=== PATIENT | male | born 1950 | race Caucasian/White ===

== ENCOUNTER 2019-03-20 18:34 | Outpatient (CLI) | payer MEDICARE, SELFPAY ==
--- NOTE | ~2019-03-20 | CT_ITS ---
EXAMINATION: CT lung screening EXAM DATE: 03/20/2019 18:55 INDICATION: Lung cancer, brain cancer. COPD. Personal history of nicotine dependence. TECHNIQUE: Spiral low dose CT of the chest without contrast. Axial, coronal and sagittal images were reviewed. The dose-length product (DLP) for this examination was 69.34 mGy-cm. The exposure was ta ilored according to patient size (auto mA exposure control), and iterative reconstruction (ASIR) was used as additional dose reduction technique. Comparison is made to prior examination from 01/15/2015. FINDINGS: Surgical changes from partial right upper lobectomy. Interval development of oblong nodula r cavitary region in the left upper lobe without spiculations, region measuring 2.8 x 1.2 cm. Appeara nce most consistent with granulation tissue but size warrants further evaluation. There is moderate to severe emphysema and hyperinflation with narrow cardiac silhouette. Tracheobron chial tree is patent. There is no mediastinal, hilar or axillary lymphadenopathy. Trace pericardi al effusion. No pleural effusion. There is no pneumothorax. There is mild coronary arterial calcif ication, arterial sclerosis. Several low density small liver lesions likely cysts again noted. There is thoracic spondylosis without osteoblastic or osteolytic lesions identified. Cervical fusion roby dware. There are no osteoblastic or osteolytic lesions identified. IMPRESSION: Lung-RADS category 4BC, suspicious; recommend PET/CT. Reviewed, dictated and finalized at location A. OL COMMISSIONER
== END 2019-03-20 18:35 | disposition home or self-care (01) ==
LOC: ANHIMG 18:41
PROVIDERS: PCP Family Medicine; Visit Provider Physician Assistant
DX: Z12.2 Encounter for screening for malignant neoplasm of respiratory organs (principal); R91.8 Other nonspecific abnormal finding of lung field; Z87.891 Personal history of nicotine dependence
CPT/HCPCS: G0297

== ENCOUNTER → 2021-03-10 09:54 | Outpatient (REF) | payer MEDICARE, SELFPAY | LOC: ANHLAB 09:54 | PROVIDERS: PCP Family Medicine; Visit Provider Nurse Practitioner | DX: D49.2 Neoplasm of unspecified behavior of bone, soft tissue, and skin (principal) | CPT/HCPCS: 88305 ==

== ENCOUNTER 2021-03-18 02:49 | Day surgery (SDC) | payer MEDICARE, SELFPAY ==
[2021-03-08 11:34] VITALS: BMI 19.4
[2021-03-18 10:49] VITALS: BP 127/77; PULSE 97; RESP 20; TEMP 36.2; O2SAT 100; BMI 18.3
[2021-03-18] MEDS: LACTATED RINGERS 1,000 ML 150 ML IV CONT (10:59)
--- NOTE | 2021-03-18 11:05 | WPDANESEPPF ---
Anes - Initial Pre Proc Eval Procedure: Operation Date: 03/18/21 12:30 Proposed Procedures p Colonoscopy - Garth Choudhury MD Date/Time: 03/18/21 11:05 Surgeon: Garth Choudhury MD Pre Op Diagnosis: positive cologuard, hx of colon polyps Patient Data Age: 71 Gender: M Height: 1.68 m Weight: 51.4 kg Last Vital Signs Temp 36.2 C L 03/18/21 10:49 Pulse 97 03/18/21 10:49 Resp 20 03/18/21 10:49 BP 127/77 03/18/21 10:49 Pulse Ox 100 03/18/21 10:49 Allergies Allergy/AdvReac Type Severity Reaction Status Date / Time No Known Allergies Allergy Unknown Verified 03/18/21 10:37 Home Medications Medication Instructions Recorded Confirmed Type tizanidine 4 mg tablet 4 mg PO TID PRN #60 tablet 02/24/20 03/08/21 Rx simvastatin 40 mg tablet See Rx Instructions .ROUTE 08/09/20 03/08/21 Rx .COMPLEX #90 tablet alprazolam 0.25 mg tablet 0.25 mg PO BID PRN #60 tablet 01/03/21 03/08/21 Rx fentanyl 50 mcg/hr transdermal 1 patch TRANSDERMAL Q48H ea 01/06/21 03/08/21 History patch meloxicam 7.5 mg tablet See Rx Instructions .ROUTE 01/06/21 03/08/21 Rx .COMPLEX #90 tablet oxycodone-acetaminophen 10 mg-325 1 tablet PO Q6H PRN 01/06/21 03/08/21 History mg tablet trazodone 50 mg tablet See Rx Instructions .ROUTE 02/01/21 03/08/21 Rx .COMPLEX #90 tablet lisinopril 20 See Rx Instructions .ROUTE 02/09/21 03/08/21 Rx mg-hydrochlorothiazide 12.5 mg .COMPLEX #90 tablet tablet albuterol sulfate [ProAir HFA] 1 inh INHALATION QID PRN 03/08/21 03/08/21 History co [id number] oil-omega 3-E 1 cap PO DAILY 03/08/21 03/08/21 History Patient hx anesthesia problems: none Family hx anesthesia problems: none Results Review: All pre-operative results and documents have been reviewed as part of the pre-operative evaluation. [facility] Family History Family History Mother Patient's mother is , Onset Age: 32 Family history of malignant neoplasm Father Acute myocardial infarction, Onset Age: 54 Family history of cardiovascular disease Grandparent Family history of lung cancer Family history of malignant neoplasm of brain Social History Social History Smoking packs per day: 1 Smoking cigarettes per day: 20.0 Years smoked: 50 Smoking pack-years: 50.00 Smoking status: Current every day smoker Tobacco type: cigarettes Alcohol intake: never Substance use: current Substance use type: opiates and prescription drug Other substance usage details: chronic back pain Last use: daily norco; fentanyl Living arrangements: with family Spiritual care concerns: No Anes - Eval Final PreProcedure Day of Procedure 03/18/21 11:05 Patient weight: thin Heart: regular rate and rhythm Lungs: decreased breath sounds and wheezes Airway: Mallampati scale class II Neurological: alert and oriented Last oral intake: >/= 8 hours ASA classification: IV Emergent: no Anesthetic plan: proceed Anesthesia type and monitoring: general GIVS and standard monitoring Results Review: All pre-operative results and documents have been reviewed as part of the pre-operative evaluation. Informed Consent: The patient's anesthetic plan and its attendant risks and benefits were discussed with the patient/family/POA. Questions were solicited and answers provided to the satisfaction of the patient/family/POA.
--- NOTE | 2021-03-18 11:08 | WPDGICN ---
Assessment and Plan Assessment and plan (1) Occult blood in stools: Code(s): R19.5 - Other fecal abnormalities Status: Acute Assessment and Plan: Patient has a recent finding of occult blood in stool. Plan is for screening colonoscopy at this time. Particularly given prior history of colon polyps. (2) History of colon polyps: Code(s): Z86.010 - Personal history of colonic polyps Status: Acute Assessment and Plan: Patient has a history of colon polyps identified removed by colonoscopy 3 years ago. Plan is for surveillance colonoscopy now. Follow-up will be determined after endoscopy. GI Consult Note Consult date/time: 03/18/21 11:08 HPI: Manny Pedro is a 71 year old male Presents for colonoscopy. Patient recently had a positive FIT test for occult blood in the stool. ( Note that this was not a Cologuard test as was initially suggested.) Patient denies any obvious blood in his stools. Family history is noncontributory. Patient does have a prior history of colon polyps identified by colonoscopy in [place] in 2018. Patient denies any abdominal pain and he has been in general good health otherwise. Review of Systems Review of Systems: All systems reviewed & are unremarkable except as noted in HPI and below PMFSH Family History Family History Mother Patient's mother is , Onset Age: 32 Family history of malignant neoplasm Father Acute myocardial infarction, Onset Age: 54 Family history of cardiovascular disease Grandparent Family history of lung cancer Family history of malignant neoplasm of brain Social History Social History Smoking packs per day: 1 Smoking cigarettes per day: 20.0 Years smoked: 50 Smoking pack-years: 50.00 Smoking status: Current every day smoker Tobacco type: cigarettes Alcohol intake: never Substance use: current Substance use type: opiates and prescription drug Other substance usage details: chronic back pain Last use: daily norco; fentanyl Living arrangements: with family Spiritual care concerns: No Meds Home Medications and Allergies Home Medications Medication Instructions Recorded Confirmed Type tizanidine 4 mg tablet 4 mg PO TID PRN #60 tablet 02/24/20 03/08/21 Rx simvastatin 40 mg tablet See Rx Instructions .ROUTE 08/09/20 03/08/21 Rx .COMPLEX #90 tablet alprazolam 0.25 mg tablet 0.25 mg PO BID PRN #60 tablet 01/03/21 03/08/21 Rx fentanyl 50 mcg/hr transdermal 1 patch TRANSDERMAL Q48H ea 01/06/21 03/08/21 History patch meloxicam 7.5 mg tablet See Rx Instructions .ROUTE 01/06/21 03/08/21 Rx .COMPLEX #90 tablet oxycodone-acetaminophen 10 mg-325 1 tablet PO Q6H PRN 01/06/21 03/08/21 History mg tablet trazodone 50 mg tablet See Rx Instructions .ROUTE 02/01/21 03/08/21 Rx .COMPLEX #90 tablet lisinopril 20 See Rx Instructions .ROUTE 02/09/21 03/08/21 Rx mg-hydrochlorothiazide 12.5 mg .COMPLEX #90 tablet tablet albuterol sulfate [ProAir HFA] 1 inh INHALATION QID PRN 03/08/21 03/08/21 History co [id number] oil-omega 3-E 1 cap PO DAILY 03/08/21 03/08/21 History Allergies Allergy/AdvReac Type Severity Reaction Status Date / Time No Known Allergies Allergy Unknown Verified 03/18/21 10:37 Vital Signs Vital Signs - 24 hr 03/18/21 10:49 Temperature 97.2 F L Pulse Rate 97 Respiratory Rate 20 Blood Pressure 127/77 Pulse Oximetry 100 Exam Narrative: Physical exam reveals patient to be alert. Vital signs stable. HEENT exam is unremarkable. Lungs are clear to auscultation and percussion. Heart is without murmur or extra sounds. Abdominal exam bowel sounds are present soft nontender with no organomegaly. Digital external rectal exam is normal.
[2021-03-18 11:34] VITALS: BP 85/53; PULSE 73; RESP 26; O2SAT 99
[2021-03-18 11:44] VITALS: BP 90/60; PULSE 70; RESP 26; O2SAT 99
[2021-03-18 11:54] VITALS: BP 111/78; PULSE 67; RESP 17; O2SAT 99
== END 2021-03-18 12:04 | disposition home or self-care (01) ==
PROVIDERS: PCP Family Medicine; Visit Provider Internal Medicine Gastroenterology
PROC: 0DJD8ZZ Inspection of Lower Intestinal Tract, Via Natural or Artificial Opening Endoscopic (ICD-10-PCS; CPT 45378; principal; 2021-03-18 12:30)
DX: R19.5 Other fecal abnormalities (principal); K63.5 Polyp of colon; D12.2 Benign neoplasm of ascending colon; D12.0 Benign neoplasm of cecum; D12.4 Benign neoplasm of descending colon; D12.5 Benign neoplasm of sigmoid colon; K64.8 Other hemorrhoids; D12.3 Benign neoplasm of transverse colon; F17.210 Nicotine dependence, cigarettes, uncomplicated; Z79.51 Long term (current) use of inhaled steroids
CPT/HCPCS: 45385; 88305; J2704; J7120

== ENCOUNTER 2023-09-11 13:44 | Outpatient (CLI) | payer MEDICARE, SELFPAY ==
--- NOTE | ~2023-09-11 | XR_ITS ---
3 VIEWS LUMBAR SPINE Ordering provider: KATHERIN MéndezC History: . LOW BACK PAIN RADIATING DOWN LEGS ANTERIORLY, NO INJURY, . Comparison: June 19, 2017 FINDINGS: VERTEBRAL BODIES:Mild levoscoliosis. Loss of lumbar lordosis suggestive of muscle spasm. No visible fracture or subluxation. Marginal osteophytes seen anteriorly in the lower lumbar area. DISK SPACES: Slight narrowing of the disc L1-L2 and L3-L4. Multilevel facet joint disease. SOFT TISSUES: Normal. IMPRESSION: No acute osseous abnormality lumbar spine. Consider follow up MRI lumbar spine if there is concern for spinal stenosis/neural impingement. Reviewed, dictated and finalized at location A. IMPRESSION: No acute osseous abnormality lumbar spine. Consider follow up MRI lumbar spine if there is concern for spinal stenosis/graham ral impingement.
--- NOTE | ~2023-09-11 | XR_ITS ---
XR hip RT 2V w AP pelvis Ordering provider: KATHERIN MéndezC History: . M25.551 - Pain in right hip, NO INJURY . Comparison: None. FINDINGS: BONES: No acute fracture or dislocation. HIP JOINT SPACES: Narrowing of the joint space is seen medially and inferiorly. SACROILIAC JOINT SPACES/LUMBAR SPINE: The sacroiliac joint spaces are normal. Mild degenerative marie es of the visualized lower lumbar spine. PUBIC SYMPHYSIS: Normal. SOFT TISSUES: Normal. Narrowing of the joint space of the left hip is also seen. IMPRESSION: No acute osseous abnormality pelvis and right hip. 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 Degenerative changes of the spine. Reviewed, dictated and finalized at location A. IMPRESSION: No acute osseous abnormality pelvis and right hip. Osteoarthritic changes in joy th hips. Degenerative changes of the spine.
== END 2023-09-11 13:45 | disposition home or self-care (01) ==
LOC: ANHIMG 13:45
PROVIDERS: PCP Family Medicine; Visit Provider Nurse Practitioner Family
DX: M16.0 Bilateral primary osteoarthritis of hip (principal); M47.896 Other spondylosis, lumbar region
CPT/HCPCS: 72100; 73502

== ENCOUNTER 2024-05-05 08:52 | Observation (INO) | payer MEDICARE, SELFPAY ==
[2024-05-05] VITALS (8 sets, daily range): BP systolic 108–140; BP diastolic 54–78; PULSE 69–83; RESP 12–19; TEMP 36.5–36.8; O2SAT 95–100
--- NOTE | ~2024-05-05 | CT_ITS ---
EXAMINATION: CT brain wo con DATE: 05/05/2024 09:53 INDICATION: Altered mental status TECHNIQUE: Computed tomography (CT) of the head was performed without intravenous contrast. The dose- length product was 605.33 mGy-cm. Automated exposure control and iterative reconstruction technique w ere employed. COMPARISON: CT dated 10/05/2010 and MRI dated 08/19/2013 FINDINGS: There is encephalomalacia of the right parietal lobe consistent with prior tumor resection. No ventriculomegaly or midline shift. Basilar cisterns are patent. There is intracranial atheroscler osis. Orbits are symmetric. No acute infarction, hemorrhage, mass or mass effect. Midline sagittal im ages demonstrate a normal corpus callosum and craniovertebral junction. There are scattered mild ankit ventricular and subcortical white matter changes, most likely related to small vessel ischemic diseas e (microangiopathy). There is a right parietal craniotomy defect. Paranasal sinuses and mastoids are pneumatized. IMPRESSION: 1. No acute intracranial abnormality. 2: Encephalomalacia of the right parietal lobe, consistent with prior tumor resection. Reviewed, dictated and finalized at location A. BUILDER IMPRESSION: 1. No acute intracranial abnormality. 2: Encephalomalacia of the right parietal lobe, consistent with prior tumor res ection.
--- NOTE | ~2024-05-05 | CT_ITS ---
EXAMINATION: CT cervical spine wo con DATE: 05/05/2024 09:57 INDICATION: Altered mental status with fall and 1 day of weakness. TECHNIQUE: Computed tomography (CT) of the cervical spine was performed without intravenous contrast. Automated exposure control and iterative reconstruction technique were employed. The dose-length pro duct was 137.45 mGy-cm. COMPARISON: None FINDINGS: Instrumented C3-T1 anterior spinal fusion with bilateral vertical shilo and pedicle screw fixation as w ell as cerclage wires about the C3-C4 and C7-T1 spinous processes. There is also anterior spinal fusi on at C3-C7. There is straightening of the normal cervical lordosis and a mild upper thoracic kyphosi s. Unfused vertebral body heights are normal. No acute fractures. Severe atlantoaxial osteoarthritis. Mild disc height loss at C2-C3, C7-T1 and at the visualized upper thoracic discs. No central canal s tenosis. There is mild neural foraminal stenosis on the right at C2-C3 and C4-C5, the left T1-2 and o n the right at T2-T3. Small amount of atherosclerotic calcific location at the bilateral carotid bulb s. Cervical soft tissues are unremarkable. Small right mastoid effusion. Moderate emphysema at the vi sualized upper lungs. There is a suture line along the margins of a partially visualized 5.4 x 4.5 cm thick-walled cavitary lesion at the right apex. There is an air-fluid level within the lesion which could be either infectious or malignant in etiology. There is some nodular thickening of the immediat luann adjacent posterior pleura. IMPRESSION: 1. Mild cervical and upper thoracic spondylosis with C3-T1 instrumented posterior spinal fusion with additional C3-C7 anterior spinal fusion without instrumentation. No acute osseous abnormality. 2. Moderate emphysema with air-fluid level within a partially visualized 5.4 x 4.5 cm thick-walled ca vitary lesion at the right apex which could be either infectious or malignant in etiology. Consider d edicated chest CT for further evaluation. Reviewed, dictated and finalized at location B. Y GRADER AND BLENDER IMPRESSION: 1. Mild cervical and upper thoracic spondylosis with C3-T1 instrumented posteri or spinal fusion with additional C3-C7 anterior spinal fusion without instrumen tation. No acute osseous abnormality. 2. Moderate emphysema with air-fluid level within a partially visualized 5.4 x 4.5 cm thick-walled cavitary lesion at the right apex which could be either inf ectious or malignant in etiology. Consider dedicated chest CT for further evalu ation.
--- NOTE | ~2024-05-05 | CT_ITS ---
EXAMINATION: CT chest abdomen pelvis w con DATE: 05/05/2024 10:38 INDICATION: Abnormal kidney labs. Cavitary mass at the right apex. TECHNIQUE: Computed tomography (CT) of the chest, abdomen, and pelvis was performed with 100 mL Omnip aque-350 intravenous contrast. Automated exposure control and iterative reconstruction technique were employed. The dose-length product was 282.43 mGy-cm. COMPARISON: PET/CT dated 04/03/[address] dated 03/20/2019 FINDINGS: CHEST CT: Again seen is moderate to severe emphysema. Again seen is an air-fluid level within a 5.3 x 5.5 x 4.2 cm heterogeneously thick-walled cavitary mass at the right apex. Suture line located along the perip agustín of the mass suggesting a prior pulmonary wedge resection. There are few small satellite nodules immediately adjacent to a cavitary mass the largest measuring 11 mm in maximal diameter with central calcification suggesting possible sequela of old granulomatous disease. 6.3 x 3.4 x 4.7 cm heterogene ously enhancing left hilar mass with lobular margins which compresses the bronchus to the superior se gment of the left lower lobe which is concerning for malignancy. There are a few additional scattered noncalcified pulmonary nodules in both lungs which are most numerous in the right lower lobe which c ould be either infectious or metastatic in etiology. The largest measures 12 mm in maximal diameter i n the left lower lobe where there are some surrounding groundglass opacity which could be due to atel ectasis or pneumonia. Heart size is normal. Atherosclerotic coronary artery calcific lesion. No peric ardial effusion. Thoracic aorta is normal in caliber with no dissection. There are a few additional m ildly prominent mediastinal and bilateral supraclavicular lymph nodes, the largest located lateral to the left thyroid lobe which measures up to 1.3 cm diameter which could be reactive or metastatic. Th ere is stranding at the left axilla surrounding a few additional enlarged lymph nodes measuring up to 1.5 cm in maximal short axis diameter and similarly concerning for metastatic disease. Mild thoracic dextroscoliosis with mild spondylosis. Partially visualized instrumentation for posterior spinal fus ion at the cervicothoracic junction extending into the cervical spine beyond the cephalad margin of t he [id number]. ABDOMEN/PELVIS CT: Multiple relatively well-defined low-attenuation hepatic cysts measuring up to 1.4 cm in maximal diam eter. There are several gallstones within the otherwise normal gallbladder. Spleen, pancreas and bila teral adrenal glands are normal. There are bilateral renal cysts, tiny at the lower pole of the left kidney and measuring up to 5.8 cm at the right kidney. No bowel obstruction. There is calcified ather osclerosis of the aorta and many of the other arteries. Prostatomegaly measuring 5.2 x 3.5 cm. Bladde r is normal. No free intraperitoneal gas or fluid. No pathologically enlarged abdominal or pelvic lym phadenopathy. Mild lumbar levoscoliosis with moderate spondylosis. IMPRESSION: 1. 6Moderate emphysema with air-fluid level within a thick-walled cavitary mass at the right apex whi ch could be malignant or infectious in etiology. 2.3 x 3.4 x 4.7 cm lobular mass at the left hilum most suspicious for metastatic disease. 3. Mediastinal, bilateral supraclavicular and left axillary lymphadenopathy suspicious for additional metastatic disease. 4. Multiple bilateral pulmonary nodules most prominent in the bilateral lower lobes which could be ad ditional metastatic disease or infectious in etiology. 5. Cholelithiasis. 6. Prostatomegaly. Reviewed, dictated and finalized at location B. BLENDER IMPRESSION: 1. 6Moderate emphysema with air-fluid level within a thick-walled cavitary mass at the right apex which could be malignant or infectious in etiology. 2.3 x 3.4 x 4.7 cm lobular mass at the left hilum most suspicious for metastati c disease. 3. Mediastinal, bilateral supraclavicular and left axillary lymphadenopathy pedro picious for additional metastatic disease. 4. Multiple bilateral pulmonary nodules most prominent in the bilateral lower l obes which could be additional metastatic disease or infectious in etiology. 5. Cholelithiasis. 6. Prostatomegaly.
--- NOTE | ~2024-05-05 | XR_ITS ---
Clinical Indication: Weakness AP and lateral views of the chest: Comparison: 06/08/2017 Findings: There is hazy and interstitial bibasilar pulmonary disease. There is a cavitary lesion with air-fluid level on the right upper lobe/right lung apex measuring 5.4 cm in maximum diameter.. Card iomediastinal silhouette is within normal limits. Bones and soft tissues are unremarkable. Impression: Right apical cavitary lesion with air-fluid level measuring 5.4 cm in diameter. Contrast-enhanced nathalie st CT recommended for further evaluation. Mild bibasilar hazy and interstitial disease could reflect mild pulmonary edema or chronic interstiti al change. Reviewed, dictated and finalized at location . 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 Contrast-enhanced chest CT recommended for further evaluation. Mild bibasilar hazy and interstitial disease could reflect mild pulmonary edema or chronic interstitial change.
--- NOTE | 2024-05-05 08:58 | ECG_ITS ---
Test Date: 2024-05-05 09:00:14 Measurements Intervals [place] Rate: 80 P: 80 [place]: 167 QRS: 81 QRSD: 84 T: 61 QT: 359 QTc: 416 Interpretive Statements SINUS RHYTHM No previous ECG available for comparison Electronically Signed On 05-05-2024 21:18:09 TAILOR'S AIDE by Janes Warren M.D.
[2024-05-05 09:13] LABS: Basophils Percent Auto 0.2 % (0.2-1.2); Eosinophils Absolute Auto 0.1 K/mm3 (0-0.3); Hematocrit 36.3 % (42.0-52.0); Hemoglobin 12.3 g/dL (14.0-18.0); Immature Granulocyte Absolute 0.05 K/mm3 (0.00-0.031); Immature Granulocyte Percent A 0.4 % (0-0.5); Lymphocytes Absolute Auto 0.96 K/mm3 (0.9-3.2); Lymphocytes Percent Auto 6.9 % (18.3-44.2); Mean Corpuscular HGB Conc 33.9 g/dl (32-36); Mean Corpuscular Hemoglobin 31.8 pg (26-34); Mean Corpuscular Volume 93.8 fl (80-100); Mean Platelet Volume 8.9 fl (7.4-10.4); Monocytes Absolute Auto 0.7 K/mm3 (0.1-0.6); Monocytes Percent Auto 4.7 % (2.6-8.5); Neutrophils Absolute Auto 12.1 K/mm3 (1.3-6.7); Neutrophils Percent Auto 86.8 % (45.5-73.1); Platelet Count Result 186 k/mm3 (150-375); Red Blood Count 3.87 M/mm3 (4.6-6.20); Red Cell Distribution Width 12.4 % (11.5-14.5); White Blood Count 13.9 K/mm3 (4.5-10.0)
[2024-05-05 09:36] LABS: Alanine Aminotransferase 11 U/L (6-50); Albumin Level 3.9 g/dL (3.5-5.1); Alkaline Phosphatase 83 U/L (38-126); Anion Gap 9 mmol/L (4-12); Aspartate Amino Transferase 19 U/L (17-59); Bilirubin,Total 1.1 mg/dL (0.2-1.3); Blood Urea Nitrogen 35 mg/dL (9-20); Calcium 9.7 mg/dL (8.4-10.2); Carbon Dioxide 27 mmol/L (22-30); Chloride 101 mmol/L (98-107); Estimated CRCL calculation 29 ml/min; Estimated Glomerular Filt Rate 50; Glucose 152 mg/dL (65-110); Sodium 137 mmol/L (137-145)
--- NOTE | 2024-05-05 09:41 | ED.WEAKNESS ---
HPI - Weakness General Chief complaint: Weakness Stated complaint: increased weakness since yesterday Time Seen by Provider: 05/05/24 09:02 History of Present Illness HPI Narrative: Patient is a 74-year-old male who presents to the ER with weakness. His family reports his last known well was around 8:00 p.m. last night. Patient endorses his ?side is hurting.?His significant other reports his size started hurting night, but his mental status was baseline. This morning patient was found around 8:00 a.m. unresponsive on the bathroom floor. Patient's stepdaughter reports he was ?mumbling ?when she found him but he was unable to ambulate. EMS brought patient to the ER. He is A&O x 2 upon arrival to the ER. Upon examination he complains of no pain besides his left chest hurting. Patient denies increased pain with palpation. He denies any shortness of breath, back pain, abdominal pain, urinary symptoms, recent fevers. Patient's significant other endorses a history of hypertension, COPD, and he is followed by pain management. Related Data Home Medications ?Medication ?Instructions ?Recorded ?Confirmed ?Last Taken ?Type fentanyl 50 mcg/hr transdermal 1 patch transdermal Q48H 01/06/21 02/15/24 03/17/21 History patch oxycodone-acetaminophen 10 mg-325 1 tablet PO Q6H PRN Shortness Of 01/06/21 02/15/24 03/17/21 History mg tablet Breath Or Wheezing [id number] oil-omega 3-vit E 1 cap PO DAILY 03/08/21 02/15/24 03/17/21 History 50 mg-550 mg-300 mg-30 unit capsule Allergies Allergy/AdvReac Type Severity Reaction Status Date / Time No Known Allergies Allergy Unknown Verified 02/15/24 15:33 Review of Systems Review of Systems: All systems reviewed & are unremarkable except as noted in HPI and below PMFSH Family History Family History Mother Patient's mother is , Onset Age: 32 Family history of malignant neoplasm Father Acute myocardial infarction, Onset Age: 54 Family history of cardiovascular disease Grandparent Family history of lung cancer Family history of malignant neoplasm of brain Social History Social History Smoking packs per day: 1 Smoking cigarettes per day: 20.0 Years smoked: 50 Smoking pack-years: 50.00 Smoking status: Current every day smoker Tobacco type: cigarettes Alcohol intake: never Substance use: current Substance use type: opiates and prescription drug Other substance usage details: chronic back pain Last use: daily norco; fentanyl Lack of Transportation: No Lack of Food: Never True Current Housing: I Have Housing Concerned About Future Housing: No Difficulty Paying Gas/Electric Bills: No Difficulty Paying for Meds: No Currently Unemployed: No Education: High School Diploma/GED Difficulty w/ Childcare or Family Care: No Living arrangements: with family Spiritual care concerns: No Exam Narrative: GENERAL: Well appearing, poorly nourished, non-toxic, in no acute distress. HEAD: Normocephalic, atraumatic. NECK: Supple. No adenopathy, no masses. RESPIRATORY: Airway patent, respirations nonlabored. Clear to auscultation bilaterally, no rales, rhonchi, wheezing. CARDIOVASCULAR: Regular rate and rhythm without murmurs, rubs, or gallops. Peripheral pulses 2+ and equal bilaterally. Constant left-sided chest/flank pain, does not increase with palpation. ABDOMINAL: Soft, nontender, nondistended, no hepatosplenomegaly. Normoactive BS. MUSCULOSKELETAL: Moves all extremities. Strength/ROM intact without gross deformities. SKIN: Warm, dry, normal color. No rashes. NEURO: A&O X2. Speech clear. Difficulty following directions. Able to complete neuro checks, but it takes an extended amount of time for pt to comprehend what is being asked of him. Cranial nerves II-XII grossly intact. PSYCHIATRIC: Flat affect. abnormal interaction. Family answered most questions. Course Vital Signs Vital signs: Vital Signs Temperature 36.5 C 05/05/24 08:59 Pulse Rate 81 05/05/24 08:59 Respiratory Rate 19 05/05/24 08:59 Blood Pressure 114/60 05/05/24 08:59 Pulse Oximetry 95 05/05/24 08:59 Oxygen Delivery Room Air 05/05/24 08:59 Temperature 36.5 C 05/05/24 08:59 Pulse Rate 69 05/05/24 11:32 Respiratory Rate 14 05/05/24 11:32 Blood Pressure 114/78 05/05/24 11:32 Pulse Oximetry 96 05/05/24 11:32 Oxygen Delivery Room Air 05/05/24 08:59 MDM - Weakness MDM Narrative Medical decision making narrative: Patient is a 74-year-old male who presents to the ER with weakness. His family reports his last known well was around 8:00 p.m. last night. Patient endorses his ?side is hurting.?His significant other reports his size started hurting night, but his mental status was baseline. This morning patient was found around 8:00 a.m. unresponsive on the bathroom floor. Patient's stepdaughter reports he was ?mumbling ?when she found him but he was unable to ambulate. EMS brought patient to the ER. He is A&O x 2 upon arrival to the ER. Upon examination he complains of no pain besides his left chest hurting. Patient denies increased pain with palpation. He denies any shortness of breath, back pain, abdominal pain, urinary symptoms, recent fevers. Patient's significant other endorses a history of hypertension, COPD, and he is followed by pain management. Labs Ordered: Imaging Ordered: Medications Ordered: Results: Diagnosis: Risks: HEART score, PECARN score Consults: Patient Education/Shared MDM: Differential Diagnosis Differential diagnosis: Likely rhabdomyolysis, sepsis, dehydration and other (pneumonia, COVID, drug-induced altered mental status) Lab Data Attestation: I reviewed the patient's lab results. 05/05/24 09:06 05/05/24 09:06 Labs: Lab Results 05/05/24 05/05/24 05/05/24 Range/Units 09:06 09:47 10:18 WBC 13.9 H (4.5-10.0) K/mm3 RBC 3.87 L (4.6-6.20) M/mm3 Hgb 12.3 L (14.0-18.0) g/dL Hct 36.3 L (42.0-52.0) % MCV 93.8 (80-100) fl MCH 31.8 (26-34) pg MCHC 33.9 (32-36) g/dl RDW 12.4 (11.5-14.5) % Plt Count 186 (150-375) k/mm3 MPV 8.9 (7.4-10.4) fl Immature Gran % (Auto) 0.4 (0-0.5) % Neut % (Auto) 86.8 H (45.5-73.1) % Lymph % (Auto) 6.9 L (18.3-44.2) % [place] % (Auto) 4.7 (2.6-8.5) % Eos % (Auto) 1.0 (0-4.4) % Baso % (Auto) 0.2 (0.2-1.2) % Lymph # (Auto) 0.96 (0.9-3.2) K/mm3 [place] # (Auto) 0.7 H (0.1-0.6) K/mm3 Eos # (Auto) 0.1 (0-0.3) K/mm3 Baso # (Auto) 0.0 (0.0-0.1) K/mm3 Abs Immat Gran (auto) 0.05 H (0.00-0.031) K/mm3 Absolute Neuts (auto) 12.1 H (1.3-6.7) K/mm3 Absolute Nucleated RBC 0.000 (0.0-0.012) K/mm3 Nucleated RBC % 0.0 (0.0-0.2) % PT 16.3 H (11.1-14.7) Seconds INR 1.3 APTT 33.5 (22.3-36.8) Seconds Sodium 137 (137-145) mmol/L Potassium 4.0 (3.4-5.0) mmol/L Chloride 101 (98-107) mmol/L Carbon Dioxide 27 (22-30) mmol/L Anion Gap 9 (4-12) mmol/L BUN 35 H (9-20) mg/dL Creatinine 1.40 H (0.7-1.3) mg/dL Estim Creat Clear Calc 29 ml/min Estimated GFR 50 L (59 - ) Glucose 152 H (65-110) mg/dL Lactic Acid 0.9 (0.7-2.0) mmol/L Calcium 9.7 (8.4-10.2) mg/dL Total Bilirubin 1.1 (0.2-1.3) mg/dL AST 19 (17-59) U/L ALT 11 (6-50) U/L Alkaline Phosphatase 83 (38-126) U/L Total Creatine Kinase 35 L (55-170) U/L Troponin I < 0.012 (0.000-0.034) ng/mL Total Protein 7.0 (6.3-8.2) g/dL Albumin 3.9 (3.5-5.1) g/dL TSH 1.000 (0.465-4.680) uIU/mL Urine Color (Yellow) Urine Appearance (Clear) Urine pH (5.0-9.0) Ur Specific [place] (1.001-1.035) Urine Protein (Negative) mg/dL Urine Glucose (UA) (Negative) mg/dL Urine Ketones (Negative) mg/dL Ur Blood (Man) (Negative) Urine Nitrate (Negative) Urine Bilirubin (Negative) Urine Urobilinogen (<2.0) mg/dL Leukocyte Esterase Rfl (Negative) TYRONE/UL Urine RBC (0-2) /hpf Urine WBC (0-3) /hpf Ur Squamous Epith Cells (Few) /hpf Urine Bacteria /hpf Urine Casts Urine Opiates Screen (Negative) Urine Methadone Screen (Negative) Ur Barbiturates Screen (Negative) Ur Phencyclidine Scrn (Negative) Ur Amphetamine Screen (Negative) U Benzodiazepines Scrn (Negative) Urine Cocaine Screen (Negative) U Cannabinoids Screen (Negative) Influenza A (RT-PCR) Negative (Negative) Influenza B (RT-PCR) Negative (Negative) RSV (RT-PCR) Negative (Negative) SARS-CoV-2 RNA (RT-PCR) Negative (Negative) 05/05/24 Range/Units 10:44 WBC (4.5-10.0) K/mm3 RBC (4.6-6.20) M/mm3 Hgb (14.0-18.0) g/dL Hct (42.0-52.0) % MCV (80-100) fl MCH (26-34) pg MCHC (32-36) g/dl RDW (11.5-14.5) % Plt Count (150-375) k/mm3 MPV (7.4-10.4) fl Immature Gran % (Auto) (0-0.5) % Neut % (Auto) (45.5-73.1) % Lymph % (Auto) (18.3-44.2) % [place] % (Auto) (2.6-8.5) % Eos % (Auto) (0-4.4) % Baso % (Auto) (0.2-1.2) % Lymph # (Auto) (0.9-3.2) K/mm3 [place] # (Auto) (0.1-0.6) K/mm3 Eos # (Auto) (0-0.3) K/mm3 Baso # (Auto) (0.0-0.1) K/mm3 Abs Immat Gran (auto) (0.00-0.031) K/mm3 Absolute Neuts (auto) (1.3-6.7) K/mm3 Absolute Nucleated RBC (0.0-0.012) K/mm3 Nucleated RBC % (0.0-0.2) % PT (11.1-14.7) Seconds INR APTT (22.3-36.8) Seconds Sodium (137-145) mmol/L Potassium (3.4-5.0) mmol/L Chloride (98-107) mmol/L Carbon Dioxide (22-30) mmol/L Anion Gap (4-12) mmol/L BUN (9-20) mg/dL Creatinine (0.7-1.3) mg/dL Estim Creat Clear Calc ml/min Estimated GFR (59 - ) Glucose (65-110) mg/dL Lactic Acid (0.7-2.0) mmol/L Calcium (8.4-10.2) mg/dL Total Bilirubin (0.2-1.3) mg/dL AST (17-59) U/L ALT (6-50) U/L Alkaline Phosphatase (38-126) U/L Total Creatine Kinase (55-170) U/L Troponin I (0.000-0.034) ng/mL Total Protein (6.3-8.2) g/dL Albumin (3.5-5.1) g/dL TSH (0.465-4.680) uIU/mL Urine Color Yellow (Yellow) Urine Appearance Clear (Clear) Urine pH 5.5 (5.0-9.0) Ur Specific [place] 1.019 (1.001-1.035) Urine Protein Trace (Negative) mg/dL Urine Glucose (UA) Negative (Negative) mg/dL Urine Ketones Trace H (Negative) mg/dL Ur Blood (Man) Negative (Negative) Urine Nitrate Negative (Negative) Urine Bilirubin Negative (Negative) Urine Urobilinogen 0.2 (<2.0) mg/dL Leukocyte Esterase Rfl Negative (Negative) TYRONE/UL Urine RBC 0-2 (0-2) /hpf Urine WBC 0-5 (0-3) /hpf Ur Squamous Epith Cells None seen (Few) /hpf Urine Bacteria None seen /hpf Urine Casts 0-2 Urine Opiates Screen Negative (Negative) Urine Methadone Screen Negative (Negative) Ur Barbiturates Screen Negative (Negative) Ur Phencyclidine Scrn Negative (Negative) Ur Amphetamine Screen Negative (Negative) U Benzodiazepines Scrn Negative (Negative) Urine Cocaine Screen Negative (Negative) U Cannabinoids Screen Negative (Negative) Influenza A (RT-PCR) (Negative) Influenza B (RT-PCR) (Negative) RSV (RT-PCR) (Negative) SARS-CoV-2 RNA (RT-PCR) (Negative) Imaging Data Attestation: I personally reviewed and interpreted this imaging study as follows: Radiologist's impression: Impressions Head CT 05/05/24 09:54 IMPRESSION: 1. No acute intracranial abnormality. 2: Encephalomalacia of the right parietal lobe, consistent with prior tumor resection. Cervical Spine CT 05/05/24 10:04 IMPRESSION: 1. Mild cervical and upper thoracic spondylosis with C3-T1 instrumented posterior spinal fusion with additional C3-C7 anterior spinal fusion without instrumentation. No acute osseous abnormality. 2. Moderate emphysema with air-fluid level within a partially visualized 5.4 x 4.5 cm thick-walled cavitary lesion at the right apex which could be either infectious or malignant in etiology. Consider dedicated chest CT for further evaluation. Chest X-Ray 05/05/24 10:05 Impression: Right apical cavitary lesion with air-fluid level measuring 5.4 cm in diameter. Contrast-enhanced chest CT recommended for further evaluation. Mild bibasilar hazy and interstitial disease could reflect mild pulmonary edema or chronic interstitial change. Chest/Abdomen/Pelvis CT 05/05/24 11:21 IMPRESSION: 1. 6Moderate emphysema with air-fluid level within a thick-walled cavitary mass at the right apex which could be malignant or infectious in etiology. 2.3 x 3.4 x 4.7 cm lobular mass at the left hilum most suspicious for metastatic disease. 3. Mediastinal, bilateral supraclavicular and left axillary lymphadenopathy suspicious for additional metastatic disease. 4. Multiple bilateral pulmonary nodules most prominent in the bilateral lower lobes which could be additional metastatic disease or infectious in etiology. 5. Cholelithiasis. 6. Prostatomegaly. Discharge Plan Discharge Clinical Impression: Pneumonia, History of lung cancer, Dehydration, Altered mental state Chronic obstructive pulmonary disease, unspecified Qualifiers: COPD type: unspecified COPD Qualified Code(s): J44.9 - Chronic obstructive pulmonary disease, unspecified Patient Disposition: Still a Patient Condition: Stable Patient Language: Welsh Prescriptions: No Action propranolol 60 mg capsule,extended release 24 hr 60 mg PO DAILY Qty: 90 2RF oxycodone-acetaminophen 10-325 mg tablet 1 tablet PO Q6H PRN (Reason: Shortness Of Breath Or Wheezing) fentanyl 50 mcg/hr patch 72 hour 1 patch transdermal Q48H co [id number] oil-omega 3-E [id number] Capsule 1 cap PO DAILY alprazolam 0.25 mg tablet 0.25 mg PO BID PRN (Reason: anxiety) Qty: 180 1RF tizanidine 4 mg tablet 4 mg PO TID PRN (Reason: muscle spasticity) Qty: 60 1RF meloxicam 7.5 mg tablet See Rx Instructions .ROUTE .COMPLEX Qty: 90 1RF Dose Instruction: TAKE 1 TABLET BY MOUTH DAILY Rx Instructions: TAKE 1 TABLET BY MOUTH DAILY simvastatin 40 mg tablet 40 mg PO DAILY Qty: 90 1RF Rx Instructions: DUE FOR APPOINTMENT FOR IN FEBRUARY lisinopril-hydrochlorothiazide 20-12.5 mg tablet See Rx Instructions .ROUTE .COMPLEX Qty: 90 1RF Dose Instruction: TAKE 1 TABLET BY MOUTH DAILY Rx Instructions: TAKE 1 TABLET BY MOUTH DAILY trazodone 150 mg tablet 150 mg PO QHS Qty: 90 1RF Follow-up/Referrals: Bret Schuler MD [Primary Care Provider] -
--- OUTSIDE RECORDS SUMMARY | 2024-05-05 09:43 | XMS_ITS | Continuity of Care Document ---
Author Name [facility] Organization [facility] Care Team Providers Care Morgue Technician Name Role Phone [facility] Unavailable Unavailable Problems Combined list of problems from Department of Defense and Veterans Affairs facilities. It does not include entries that were removed or entered in error. Problem Status Onset Date Problem Type Date of Resolution Comments Source Adjustment Disorder W/Anxiety Active Condition [facility] Anxiety (SNOMED CT 99380004) Active Condition [facility] Benign essential hypertension (SNOMED CT 7855651) Active Condition [facility] Bilateral shoulder joint pain Active Condition [facility] Depression Active Condition [facility] Herpes Genitalis Active Condition Nov 12, 2006 Entered By: RONY SCHUMACHER Comment: no outbreak for 1 year [facility] History of cervical spine fusion (SNOMED CT 3734876267025) Active Condition Nov 12, 2006 Entered By: RONY SCHUMACHER Comment: patient has had 2 surgeries and has a shilo in place. [facility] Hypercalcemia Active Condition [facility] Hypokalemia * (ICD-9-CM 276.8) Active Condition [facility] Lung Cancer (SCT 85243695) Active Condition Nov 04, 2019 Entered By: PAULIE LIZARRAGA Comment: recurrent; seeing Dmitriy, pending surgery or radiation tx [facility] Mixed hyperlipidemia (SNOMED CT 293056013) Active Condition [facility] Mood Disorder NOS Active Condition [facility] Substance-Induced Mood Disorder Active Condition [facility] Tobacco use Active Condition [facility] Carcinoma of lung Inactive Condition 11/04/2019 [facility] Degenerative Joint Disease Inactive Condition 11/04/2019 Nov 12, 2006 Entered By: RONY SCHUMACHER Comment: right knee [facility] Hyperkalemia * (ICD-9-CM 276.7) Inactive Condition 04/12/2007 [facility] Low Back Pain Inactive Condition 11/04/2019Nov Entered By: RONY SCHUMACHER Comment: had discectomy in the [facility] Medications Combined list of outpatient medications from Department of Defense and Veterans Affairs facilities.Medications provided include 1) outpatient medications from the last 15 months, and 2) patient-reported medications. Medication Details Route Status Patient Instructions Prescription Expires Prescription Number Last Dispense Date Ordering Provider Order Date Order Qty Source ALPRAZOLAM 0.25MG TAB TAKE ONE TABLET BY MOUTH TWICE A DAY NEEDED ORAL ACTIVE HOWARD FARMER 2020 [facility] FENTANYL 25MCG/HR PATCH APPLY 1 PATCH (25MCG) TO SKIN SITE EVERY 72 HOURS TRANSD ERMAL ACTIVE HPAM SCHUMACHER 2006 [facility] FISH OIL CAP/TAB TAKE 1 CAP/TAB BY MOUTH ORAL ACTIVE HOWARD FARMER 2020 [facility] HYDROCHLORO THIAZIDE 12.5MG/DYANA NOPRIL 20MG TAB TAKE ONE TABLET BY MOUTH EVERY MORNING ORAL ACTIVE HOWARD FARMER 2020 [facility] LEVETIRACET AM 500MG TAB TAKE ONE TABLET BY MOUTH TWICE A DAY ORAL ACTIVE HOWARD FARMER 2020 [facility] MELOXICAM 7.5MG TAB TAKE ONE TABLET BY MOUTH ONCE A DAY ORAL ACTIVE HOWARD FARMER 2020 [facility] MULTIVITAMI NS CAP/TAB TAKE ONE TABLET BY MOUTH ONCE A DAY ORAL ACTIVE HOWARD FARMER 2020 [facility] OXYCODONE/A CETAMINOPHE N (UD) TAB TAKE 5/325MG BY MOUTH FOUR TIMES A DAY ORAL ACTIVE PHAM SCHUMACHER 2006 [facility] SIMVASTATIN 80MG TAB TAKE ONE-HALF TABLET BY MOUTH EVERY EVENING ORAL ACTIVE HOWARD FARMER 2020 [facility] TIZANIDINE HCL 4MG TAB TAKE ONE TABLET BY MOUTH ONCE A DAY ORAL ACTIVE HOWARD FARMER 2020 [facility] TRAZODONE HCL 100MG TAB TAKE ONE-HALF TABLET BY MOUTH AT BEDTIME ORAL ACTIVE HOWARD FARMER 2020 [facility] Immunizations Combined list of available immunizations from the Department of Defense and Veterans Affairs facilities. Immunization Series Date Given Administered By Site Reaction Lot Number CVX Code Drug Customer Assistance Representative Status Comments Source COVID-19, MRNA, LNP-S, BIVALENT BOOSTER, PF, 30 MCG/0.3 ML DOSE 1 2021 300 complet ed PFR; [id number]; 3 [facility] INFLUENZA VACCINE, QUADRIVALENT, ADJUVANTED 2021 205 complet ed [facility] COVID-19 (MODERNA), MRNA, LNP-S, PF, 100 MCG/0.5ML DOSE OR 50 MCG/0.25ML DOSE 3 2020 207 complet ed [facility] INFLUENZA VACCINE, QUADRIVALENT, ADJUVANTED 2020 205 complet ed [facility] COVID-19 (MODERNA), MRNA, LNP-S, PF, 100 MCG/0.5 ML DOSE 2 2020 207 complet ed [facility] COVID-19 (MODERNA), MRNA, LNP-S, PF, 100 MCG/0.5 ML DOSE 1 2020 207 complet ed [facility] INFLUENZA, UNSPECIFIED FORMULATION 2018 88 complet ed [facility] INFLUENZA, INJECTABLE, QUADRIVALENT, PRESERVATIVE FREE 2017 150 complet ed [facility] TDAP 2017 115 complet ed [facility] INFLUENZA, UNSPECIFIED FORMULATION 2007 88 complet ed [facility] INFLUENZA, UNSPECIFIED FORMULATION 2006 88 complet ed [facility] TDAP 2006 115 complet ed [facility] Social History Combined list of available smoking, tobacco, and other social history from Department of Defense and Veterans Affairs facilities. Social History Type Response Date Comment [facility] e Tobacco smoking status [facility] VA-TOBACCO USER EVERY DAY 01/05/2022 [facility] [place] of [place] 30 MIN OF WAKEUP 01/05/2022 [facility] History of tobacco use [place] EVERY DAY 01/05/2021 [facility] History of tobacco use VA-TOBACCO USE STAMPING OPERATOR NO 11/27/2018 [facility] History of tobacco use TOBACCO USER OFFERED MEDS 12/17/2017 [facility] History of tobacco use CURRENT TOBACCO USER 03/31/[address] [facility] History of tobacco use TOBACCO OFFERED STOP SMOKING CLINIC 09/05/[address] [facility] History of tobacco use CURRENT TOBACCO USER [facility]/12[facility]2006 [facility]
--- OUTSIDE RECORDS SUMMARY | 2024-05-05 09:43 | XMS_ITS | Clinical Summary ---
Author Organization [facility] Address [address] [place] [address] Care Team Providers Care E Learning Coordinator Name Role Phone Unavailable Primary Care Provider Unavailabl e Source Comments [facility] [employer],non-owned Affiliates and Associated Physician Practices is amultiple site organization consisting of ambulatory clinics and hospital sitesin [place], [place], [place] and [place]. This disclosure is being madepursuant to the Care Everywhere program and may not contain all information available regarding this patient. Last updated 17.[facility] [employer] Social History Tobacco Use Types Packs/Day Years Used Date Smoking Tobacco: Never Assessed Sex and Gender Information Value Date Recorded Sex Assigned at Not on file Gender Identity Not on file Sexual Orientation Not on file Plan of Treatment Health Maintenance Due Date Last Done Comments COLOGUARD (AGES 45-75) - COL ON CA SCREENING 1951 COLON MONITORING 1951 COLONOSCOPY - COLON CA SCREENING 1951 CT COLONOGRAPHY - COLON CA SCREENING 1950 Colorectal Cancer Screening 1951 FIT - COLON CA SCREENING 1951 FLEX SIG - COLON CA SCREENING 1951 LIPID TESTING 1951 HEPATITIS C SCREENING 03/09/1969 DTAP/TDAP/TD VACCINES (1 - Tdap) 1970 PNEUMOCOCCAL VACCINE 50+ (1 of 1 - PCV) 2001 ZOSTER VACCINE (1 of 2) 2001 COVID-19 VACCINE ( - 2023-2 5 season) 2023 INFLUENZA VACCINE (#1) 2023 DEPRESSION SCREENING 04/09/2024 MEDICARE AWV ? CALENDAR YEAR 2024 Respiratory Syncytial Virus (RSV) Vaccine Pt: or over 60 yrs (1 - 1-dose 75+ series) 2026 HEPATITIS B VACCINE Aged Out No longe r eligible based on patient's age to complete this topic HIB VACCINE Aged Out No longer eligi ble based on patient's age to complete this topic HPV VACCINE Aged Out No longer eligi ble based on patient's age to complete this topic MENINGOCOCCAL (Group B) VACCINE Aged Out No longer eligible based on patient's age to complete this topic MENINGOCOCCAL VACCINE Aged Out No álvaro addison eligible based on patient's age to complete this topic
--- OUTSIDE RECORDS SUMMARY | 2024-05-05 09:43 | XMS_ITS | Referral Summary ---
Author Organization [facility] Address [address] [place] [address] Care Team Providers Care International Sales Representative Name Role Phone Unavailable Primary Care Provider Unavailabl e Source Comments [facility],non-owned Affiliates and Associated Physician Practices is amultiple site organization consisting of ambulatory clinics and hospital sitesin [place], [place], [place] and [place]. This disclosure is being madepursuant to the Care Everywhere program and may not contain all information available regarding this patient. Last updated 17.[facility] [employer] Social History Tobacco Use Types Packs/Day Years Used Date Smoking Tobacco: Never Assessed Sex and Gender Information Value Date Recorded Sex Assigned at Not on file Gender Identity Not on file Sexual Orientation Not on file Plan of Treatment Not on file
--- OUTSIDE RECORDS SUMMARY | 2024-05-05 09:43 | XMS_ITS | Patient Health Summary ---
Author Organization [facility] Address [address] [place] [address] Care Team Providers Care Forestry Scientist Name Role Phone Unavailable Primary Care Provider Unavailabl e Note from [facility],non-owned Affiliates and Associated Physician Practices is amultiple site organization consisting of ambulatory clinics and hospital sitesin [place], [place], [place] and [place]. This disclosure is being madepursuant to the Care Everywhere program and may not contain all information available regarding this patient. Last updated 17.[facility] Social History Tobacco Use Types Packs/Day Years Used Date Smoking Tobacco: Never Assessed Sex and Gender Information Value Date Recorded Sex Assigned at Not on file Gender Identity Not on file Sexual Orientation Not on file Procedures * GROSS + MICRO EXAM(Performed 07/28/1999) Results * GROSS + MICRO EXAM (07/28/1999 7:55 AM CDT) Result CASE NUMBER [id number] Comment: ORDERING PHYSICIAN ??TYRONE VÁSQUEZ SPECIMEN TYPE ?Intervertebral Disc-cervical Date ? 07/29/1999 Physician ?Sheila Gross Description ? The specimen is received in a ??formalin-filled container labeled with the patient's name and cervical disc and consists of several fragments of intervertebral disc admixed with bone chips and measuring in aggregate 3 x 2 x up to .5 cm. ??Tortilla Maker sections are submitted in one cassette for decal. THOMPSONz/c Microscopic Exam ? Microscopic examination reveals fragments of fibrocartilage that exhibit fibrillation and scattered hyperplastic chondroid islands. Also noted are fragments of bone and hyaline type cartilage. There is no evidence of nerve bundles, granulomata, inflammation or malignancy. ?? /[facility] Diagnosis ? I. ?Intervertebral disc, cervical region, excision ?A. ?Fibrocartilage and bone (See microscopic description) ?B. ?Clinical history of cervical spondylosis /[facility] Laboratory Technician ? [facility] Pathologist ?Sanjana Avila M.D. Snomed. ?08/01/1999 1041 <1> CPT code ? 47243/00308, 8311/31191 MISCELLANEOUS SAMPLES / Unknown 07/28/1999 7:55 AM CDT 07/29/1999 7:56 AM CDT Historical Provider LAB - PATHOLOGY/C YTOLOGY ORDERABLES
--- OUTSIDE RECORDS SUMMARY | 2024-05-05 09:43 | XMS_ITS | Referral Summary ---
Author Organization [facility] Address [address] [place] [address] Care Team Providers Care Sheet Heater Name Role Phone Julio Caballero MD Unavailable Rudolph Chaves MD Unavailable [phone] Bret Schuler MD Primary Care Provider [phone] Encounters Date Type Department Care Team Description 02/27/2024 9:30 AM CEO - 02/27/2024 11:59 PM [facility] Hospital Encounter [facility] [address] [place] [address] Advanced Medicine [address] [place] [id number] Demetrio Dewitt NP Cervical post-laminectomy syndrome (Primary Dx); Chronic pain syndrome; Chronic use of opiate drug for therapeutic purpose Discharge Disposition: Discharge to home or self care from Last 3 Months Allergies No known active allergies Medications omega 6-ucg-lfl-fish oil 300-1,000 mg capsule daily Active meloxicam (MOBIC) 7.5 mg tablet 5 8 Active ARTIFICIAL TEARS, POLYVIN ALC, 1.4 % ophthalmic solution 0 8 Active simvastatin (ZOCOR) 40 mg tablet daily. Active lisinopril-hydr oCHLOROthiazide (ZESTORETIC) 20-12.5 mg per tablet TK 1 T PO QD 3 9 Active multivitamin capsule Take 1 capsule by mouth daily Active naloxone (NARCAN) 4 mg/actuation spray,non-aeros olIndications:A t risk for respiratory depression due to opioid Administer 1 spray into affected nostril(s) as needed for opioid reversal 1 each 0 Active sildenafiL (VIAGRA) 100 mg tablet Take 1 tablet (100 mg total) by mouth daily as needed for erectile dysfunction Haven't started yet Active propranolol LA (INDERAL LA) 60 mg 24 hr capsule 4 Active tiZANidine (ZANAFLEX) 4 mg tablet 4 Active traZODone (DESYREL) 150 mg tablet 4 Active oxyCODONE-aceta minophen (PERCOCET) 10-325 mg per tabletIndicatio ns:Pain Take 1 tablet by mouth every 6 (six) hours as needed for pain 120 tablet 5 Active fentaNYL (DURAGESIC) 50 mcg/hrIndicatio ns:Chronic Pain with Opioid Tolerance Place 1 patch on the skin every other day 15 patch 5 Active oxyCODONE-aceta minophen (PERCOCET) 10-325 mg per tabletIndicatio ns:Pain Take 1 tablet by mouth every 6 (six) hours as needed for pain 120 tablet 4 025 Discontin ued(Reord er) fentaNYL (DURAGESIC) 50 mcg/hrIndicatio ns:Chronic Pain with Opioid Tolerance Place 1 patch on the skin every other day 15 patch 4 025 Discontin ued(Reord er) Active Problems Patient Care Coordination No te Formatting of this note migh t be different from the original. Mr. Danyell Pedro is a 69-year-old referred to us by Dr. Caballero for a lung nodule. Patient has a history of metastatic T1N0M1 lung cancer diagnosed in 2010 and is status post right upper lobe VATS wedge resection with Dr. Robles and a craniotomy with evacuation of a hematoma with resection of a hemorrhagic mass with Dr. Magallon on 10/13/2010. On 11/10/2010 the patient subsequently underwent gamma knife to the right parietal resection cavity. Patient met with Oncology after his surgery but he never received chemotherapy. On 03/20/2019 the patient underwent a lung cancer screening CT which showed surgical changes from a partial right upper lobe lobectomy with interval development of an left upper lobe cavitary lung nodule measuring 2.8 x 1.6 cm. This tethers to the adjacent pleura. Patient is a current smoker. Patient presents today for further surgical evaluation. Review of systems: All systems reviewed and are negative. Problem Noted Date Diagnosed Date Chronic pain syndrome 02/19/2018 Cervical post-laminectomy syndrome 02/19/2018 History of brain cancer History of lung cancer Social History Tobacco Use Types Packs/Day Years Used Date Smoking Tobacco: Every Day Cigarettes 1 50 Smokeless Tobacco: Never Tobacco Cessation:Ready to Q uit: Not Asked; Counseling Given: Not Answered Alcohol Use Standard Drinks/Week Comments No 0 (1 standard drink = 0.6 oz pur e alcohol) AUDIT-C Answer Date Recorded Q1: How often do you have a drink containing alcohol? Never 11/29/2023 Q2: How many drinks containi ng alcohol do you have on a typical day when you are drinking? Patient does not drink Q3: How often do you have si x or more drinks on one occasion? Never 11/29/2023 Sex and Gender Information Value Date Recorded Sex Assigned at Not on file Legal Sex Male 9:48 AM CEO Gender Identity Not on file Sexual Orientation Not on file Occupation Industry Job Start Date Job End Date retired Not on file Not on file Not on file Last Filed Vital Signs Vital Sign Reading Time Taken Comments Blood Pressure 127/73 02/27/2024 9:52 AM CEO Pulse 69 02/27/2024 9:52 AM CEO Temperature 36.3 ??C (97.3 ??F) 02/27/2024 9:52 AM CS T Respiratory Rate 10 02/27/2024 9:52 AM CEO Oxygen Saturation 97% 02/27/2024 9:52 AM CEO Inhaled Oxygen Concentration - - Weight 54.4 kg (120 lb) 11/29/2023 8:53 AM CDT Height 167.6 cm (5' 6 ) 11/29/2023 8:53 AM CDT Body Mass Index 19.37 11/29/2023 8:53 AM CDT Plan of Treatment Not on file Goals Goal Patient Goal Type Associated Problems Recent Progress Patient-Stated? Author CCM Chronic Pain Care Plan Chronic Care Management No change(02/08 9:53 AM CEO) No Preeti Pena Note: Problem: Chronic Pain Goals: 1. Minimize further functional decline 2. Maximize quality of life 3. Control pain Strategies: - Activity/exercise program recommendation - Conservative stepwise pain medicine strategy with multi-disciplinary approach - Recommend healthy lifestyle strategies and compensatory methods as needed Reduce the likelihood of falling Lifestyle No Carly Melara Note: Below are four things you can do to prevent falls: 1. Begin an exercise program to improve your leg strength & balance 2. Ask your doctor or pharmacist to review your medicines 3. Get annual eye check-ups & update your eyeglasses 4. Make your home safer by: ?? Removing clutter & tripping hazards ?? Putting railings on all stairs & adding grab bars in the bathroom ?? Having good lighting, especially on stairs Contact your local community or [facility] for information on exercise, fall prevention programs, or options for improving home safety. Medical Devices Implanted Type Area Hoop Flaring Machine Operator Helper Device Identifier Shelf Expiration Date Model / Serial / Lot Metal Neck Description:Neck and back fr om surgery Insurance MEDICARE SOLUTIONS [facility] MEDICARE [facility] MDCR HMO REF IDPA MEDICARE SOLUTIONS Advance Directives For more information, please contact: [phone] * Full Code (Latest Code Status on File) Date Activated Date Inactivated Comments 05/20/2019 12:15 PM 05/21/2019 4:39 AM * Full Code Date Activated Date Inactivated Comments 05/01/2019 11:19 AM 05/02/2019 4:34 AM Care Teams Sheet Heater Relationship Specialty Start Date End Date Bret Schuler MD [address] [place] [address] [place] [address] PCP - General Family Medicine 05/15/23 Julio Caballero MD [address] [place] [address] Referring Physician Family Medicine 04/03/19 Rudolph Chaves MD [address] [place] [address] Radiation Oncologist Radiation Oncology 04/21/19
--- OUTSIDE RECORDS SUMMARY | 2024-05-05 09:43 | XMS_ITS | Encounter Summary ---
Author Organization [facility] Address [address] [place] [address] Care Team Providers Care Dining Room Host Name Role Phone Julio Caballero MD Primary Care Provider [phone] Julio Caballero MD Unavailable Rudolph Chaves MD Unavailable [phone] Bret Schuler MD Primary Care Provider [phone] Encounter Details Date Type Department Care Team (Late st Contact Info) Description 04/22/2019 Telephone [facility] Advanced Medicine Radiation Oncology [address] [place] [address] Silva Padilla, RN Social History Tobacco Use Types Packs/Day Years Used Date Smoking Tobacco: Every Day Cigarettes 0.3 50 Smokeless Tobacco: Never Alcohol Use Standard Drinks/Week Comments No 0 (1 standard drink = 0.6 oz pur e alcohol) Sex and Gender Information Value Date Recorded Sex Assigned at Not on file Legal Sex Male 9:48 AM PORCELAIN MIXER Gender Identity Not on file Sexual Orientation Not on file Occupation Industry Job Start Date Job End Date retired Not on file Not on file Not on file documented as of this encounter Plan of Treatment Not on file documented as of this encounter Goals Goal Patient Goal Type Associated Problems Recent Progress Patient-Stated? Author CCM Chronic Pain Care Plan Chronic Care Management No change(02/08 9:53 AM PORCELAIN MIXER) No Preeti Pena Note: Problem: Chronic Pain Goals: 1. Minimize further functional decline 2. Maximize quality of life 3. Control pain Strategies: - Activity/exercise program recommendation - Conservative stepwise pain medicine strategy with multi-disciplinary approach - Recommend healthy lifestyle strategies and compensatory methods as needed Reduce the likelihood of falling Lifestyle Carly Goode Note: Below are four things you can [...] on stairs Contact your local community or [facility] for information on exercise, fall prevention programs, or options for improving home safety. documented as of this encounter Visit Diagnoses Diagnosis History of lung cancer- Primary Personal history of malignant neoplasm of bronchus and lung documented in this encounter Orders Lab Orders Without Results Count Last Ordered D ate First Ordered Date PT+PTT+INR 1 04/22/2019 documented in this encounter Care Teams Dining Room Host Relationship Specialty Start Date End Date Julio Caballero MD [address] [place] [address] PCP - General 06/02/16 05/14/23 Bret Schuler MD [address] [place] [address] [place] [address] PCP - General Family Medicine 05/15/23 Julio Caballero MD [address] [place] [address] Referring Physician Family Medicine 04/03/19 Rudolph Chaves MD [address] [place] [address] Radiation Oncologist Radiation Oncology 04/21/19 documented as of this encounter
--- OUTSIDE RECORDS SUMMARY | 2024-05-05 09:43 | XMS_ITS | Clinical Summary ---
Author Organization [facility] Address [address] [address] Care Team Providers Care Camera Engineer Name Role Phone Julio Caballero MD Unavailable Rudolph Chaves MD Unavailable [phone] Bret Schuler MD Primary Care Provider [phone] Allergies No known active allergies Medications omega 8-akq-ptr-fish oil 300-1,000 mg capsule daily Active meloxicam [...] of brain cancer History of lung cancer Encounters Date Type Department Care Team Description 02/27/2024 9:30 AM PILE HEADER - 02/27/2024 11:59 PM PILE HEADER Hospital Encounter [facility] [address] [place] [id number] Demetrio Dewitt NP Cervical post-laminectomy syndrome (Primary Dx); Chronic pain syndrome; Chronic use of opiate drug for therapeutic purpose Discharge Disposition: Discharge to home or self care from Last 3 Months Surgical History Surgery Date Site/Laterality Comments CRANIOTOMY Craniotomy (Therapeutic) - (Added by TW Conv) INTRACRANIAL STEREOTACTIC GAMMA RADIOSURGERY Intracranial Stereotactic Gamma Radiosurgery - (Added by TW Conv) LUNG REMOVAL, PARTIAL ARM SURGERY Left x2 ELBOW SURGERY Bilateral WRIST SURGERY BACK SURGERY BRAIN SURGERY LUNG BIOPSY 05/10/2019 - 06/07/2019 Left EYE SURGERY Medical History Medical History Date Comments Personal history of malignan t neoplasm of bronchus and lung Carcinoma Of The Lung - (Add ed by TW Conv) Tobacco abuse counseling Encount er for smoking cessation counseling - (Added by TW Conv) Nontraumatic intracerebral h emorrhage (HCC) Intracerebral hemorrhage - ( Added by TW Conv) History of brain cancer History of lung cancer Hypertension Chronic pain Brain cancer (HCC) 2000 Neck pain Herpes Mass of left lung 03/2019 Low back pain Family History Medical History Relation Name Comments Cerebral aneurysm Other 1 Cerebral A rtery Aneurysm - (Added by TW Conv) Hypertension Other 2 Hypertension - (Added by TW Conv) Brain cancer Other 3 Brain Cancer - (Added by TW Conv) Relation Name Status Comments Father Mother Other 1 Other 2 Other 3 Social History Tobacco Use Types Packs/Day Years [...] on file Legal Sex Male 9:48 AM PILE HEADER Gender Identity Not on file Sexual Orientation Not on file Occupation Industry Job Start Date Job End Date retired Not on file Not on file Not on file Obstetrics History Last Filed Vital Signs Vital Sign Reading Time Taken Comments Blood Pressure 127/73 02/27/2024 9:52 AM PILE HEADER Pulse 69 02/27/2024 9:52 AM PILE HEADER Temperature 36.3 ??C (97.3 ??F) 02/27/2024 9:52 AM CS T Respiratory Rate 10 02/27/2024 9:52 AM PILE HEADER Oxygen Saturation 97% 02/27/2024 9:52 AM PILE HEADER Inhaled Oxygen Concentration - - Weight 54.4 kg (120 lb) 11/29/2023 8:53 AM CDT Height 167.6 cm (5' 6 ) 11/29/2023 8:53 AM CDT Body Mass Index 19.37 11/29/2023 8:53 AM CDT Plan of Treatment Health Maintenance Due Date Last Done Comments Colon Cancer Screening-Colonoscopy 1951 Depression Screening 1951 Hepatitis C Screening 1951 Hepatitis B Screening 1969 Zoster Vaccine (1 of 2) 1970 Abdominal Aortic Aneurysm (A AA) Screen 2016 Well Visit 65+ 2016 Fall Risk Assessment 03/24/2022 03/24/2021, 12/21/2020, 10/20/2020, Additional history exists Covid-19 Vaccine (5 - 2023-2 5 season) 2023 07/18/2021, 02/24/2021, 06/29/2020, Additional history exists Influenza Vaccine (#1) 2023 , 01/20/2019, 01/17/2019, Additional history exists DTaP/Tdap/Td Vaccine (3 - Td or Tdap) 01/10/2028 01/09/2018, 11/12/2006 Pneumococcal vaccine 65+ Completed 01/06/2019, 01/08 Goals Goal Patient Goal Type Associated Problems Recent Progress Patient-Stated? Author CCM Chronic Pain Care Plan Chronic Care Management No change(02/08 9:53 AM PILE HEADER) No Preeti Pena Note: Problem: Chronic Pain [...] on stairs Contact your local community or [facility] for information on exercise, fall prevention programs, or options for improving home safety. Medical Devices Implanted Type Area Supervisor Policy Change Clerks Device Identifier Shelf Expiration Date Model / Serial / Lot Metal Neck Description:Neck and back fr om surgery [place] [address] [facility] MEDICARE [facility] Address: [address] [address] [place] [address] [facility] REF IDPA MEDICARE SOLUTIONS Advance Directives For more information, please contact: [phone] * Full Code (Latest Code Status on File) Date Activated Date Inactivated Comments 05/20/2019 12:15 PM 05/21/2019 4:39 AM * Full Code Date Activated Date Inactivated Comments 05/01/2019 11:19 AM 05/02/2019 4:34 AM Care Teams Camera Engineer Relationship Specialty Start Date End Date Bret Schuler MD [address] [place] [address] DR CHAN [address] [place] [address] PCP - General Family Medicine 05/15/23 Julio Caballero MD [address] [place] [address] Referring Physician Family Medicine 04/03/19 Rudolph Chaves MD [address] [place] [address] Radiation Oncologist Radiation Oncology 04/21/19
--- OUTSIDE RECORDS SUMMARY | 2024-05-05 09:43 | XMS_ITS | Encounter Summary ---
Author Organization [facility] Address [address] [place] [address] Care Team Providers Care Bleach Boiler Packer Name Role Phone Julio Caballero MD Primary Care Provider [phone] Julio Caballero MD Unavailable Rudolph Chaves MD Unavailable [phone] Bret Schuler MD Primary Care Provider [phone] Encounter Details Date Type Department Care Team (Late st Contact Info) Description 09/26/2019 Telephone [facility] [address] [place] [address] Barb Corcoran, RT Social History Tobacco Use Types Packs/Day Years Used Date Smoking Tobacco: Every Day Cigarettes 0.3 50 Smokeless Tobacco: Never Alcohol Use Standard Drinks/Week Comments No 0 (1 standard drink = 0.6 oz pur e alcohol) Sex and Gender Information Value Date Recorded Sex Assigned at Not on file 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 documented as of this encounter Visit Diagnoses Not on filedocumented in this encounter Care Teams Bleach Boiler Packer Relationship Specialty Start Date End Date Julio Caballero MD [address] [place] [address] PCP - General 06/02/16 05/14/23 Bret Schuler MD [address] [place] [address] [place] [address] PCP - General Family Medicine 05/15/23 Julio Caballero MD [address] [place] [address] Referring Physician Family Medicine 04/03/19 Rudolph Chaves MD [address] [place] [address] Radiation Oncologist Radiation Oncology 04/21/19 documented as of this encounter
--- OUTSIDE RECORDS SUMMARY | 2024-05-05 09:43 | XMS_ITS | Continuity of Care Document ---
Author Organization [facility] Address [address] [place] [address] Phone Care Team Providers Care Guzzler Builder Name Role Phone [facility] Unavailable Unavailable Advance Directives Directive Yes / No Effective Date File Name No Information Encounters Encounter Description Practice Location Reason(s) For Visit Diagnoses Date Provider Providers Copied on Encounter [facility], [address], [place], [place], [id number], [place] tel:[phone] [facility] No Information [address] [facility]. [address], [address], [place], [place], [id number] , [place]. tel:[phone] Family History Family Member Type Diagnosis Age At Onset No Information Payers Payer name Insurance type Covered green party ID Authoriza tion(s) No Information Social History Type Description Quantity Date Captured Comments Sex Male Smoking Status No Information Chief Complaint And Reason For Visit No Information Reason For Referral Reason For Referral No Information History Of Present Illness Encounter Date Complaint History Of Prese nt Illness No Information Functional Status Date Functional Assessmen t No Information Instructions Date Instruction Additional Infor mation No Information Assessments Type Assessment Date No Information Patient Care Teams Name Effective Dates (start - stop) Status Members No Information
[2024-05-05] MEDS: SODIUM CHLORIDE 0.9% IV 1,000 ML 999 ML IV CONT (10:07)
[2024-05-05 10:08] LABS: Creatine Kinase 35 U/L (55-170)
[2024-05-05 10:17] LABS: INR 1.3; Prothrombin Time 16.3 Seconds (11.1-14.7)
[2024-05-05 10:18] LABS: Partial Thromboplastin Time 33.5 Seconds (22.3-36.8)
[2024-05-05 10:21] LABS: Troponin I < 0.012 ng/mL (0.000-0.034)
[2024-05-05 10:30] LABS: Influenza A QL RT-PCR Negative (Negative); Influenza B QL RT-PCR Negative (Negative); RSV RNA, RT-PCR Negative (Negative); SARS-CoV-2 RNA PCR Negative (Negative)
[2024-05-05 10:43] LABS: Lactic Acid Reflex 0.9 mmol/L (0.7-2.0)
[2024-05-05 10:56] LABS: Add Urine Microscopic? YES; Appearance Urine Clear (Clear); Bacteria Urine None Seen /hpf; Bilirubin Urine Negative (Negative); Blood Urine Negative (Negative); Color Urine Yellow (Yellow); Glucose Urine UA Negative (Negative); Ketones Urine Trace mg/dL (Negative); Leukocyte Esterase Ur Negative LEU/UL (Negative); Nitrate Urine Negative (Negative); Non Pathogenic Casts 0-2; Protein Urine Trace mg/dL (Negative); RBC Urine 0-2 /hpf (0-2); Specific Grav Ur 1.019 (1.001-1.035); Squamous Epithelial Cell Urine None Seen /hpf (Few); Urobilinogen Urine 0.2 mg/dL (<2.0); WBC Urine 0-5 /hpf (0-3); pH Urine 5.5 (5.0-9.0)
[2024-05-05 11:18] LABS: Amphetamine Screen Urine Negative (Negative); Barbiturate Screen Urine Negative (Negative); Benzodiazepines Screen Urine Negative (Negative); Cannabinoid Screen Urine Negative (Negative); Cocaine Screen Urine Negative (Negative); Methadone Screen Urine Negative (Negative); Opiate Screen Urine Negative (Negative); Phencyclidine Screen Urine Negative (Negative)
--- NOTE | 2024-05-05 12:28 | P.HP_ITS ---
H&P: HPI History of Present Illness Date/Time: 05/05/24 12:28 Chief Complaint: Mental status Narrative: 74-year-old male with history of lung cancer with resection and brain cancer with prior tumor resection presents the hospital with altered mental status. This morning patient was found around 8:00 a.m. unresponsive on the bathroom floor. Patient's stepdaughter reports he was ?mumbling ?when she found him but he was unable to ambulate. On bedside exam the patient is alert and oriented to self place, year season, he did get the month wrong. Patient complains of some shortness of breath with activity. In the ED he had leukocytosis at 13.9, anemia at 12.3, creatinine of 1.4 baseline appears to be 1.2, GFR 50, glucose of 152, UA negative for infection, U tox negative, influenza A/B, RSV, COVID negative. CT chest abdomen pelvis show Moderate emphysema with air-fluid level within a thick-walled cavitary mass at the right apex which could be malignant or infectious in etiology. 2.3 x 3.4 x 4.7 cm lobular mass at the left hilum most suspicious for metastatic disease. Mediastinal, bilateral supraclavicular and left axillary lymphadenopathy suspicious for additional metastatic disease. Multiple bilateral pulmonary nodules most prominent in the bilateral lower lobes which could be additional metastatic disease or infectious in etiology. CT head shows Encephalomalacia of the right parietal lobe, consistent with prior tumor resection. Cervical spine CT shows no acute fracture. Patient was given cefepime, vancomycin and 1 L of saline. Review of Systems Review of Systems: 12 systems were reviewed and are negativ e except for as per HPI. PMFSH Past Medical History Medical History Chronic pain syndrome Brain cancer Lung cancer History of lung cancer Surgical History Surgical History History of pneumonectomy Family History Family History Mother Patient's mother is , Onset Age: 32 Family history of malignant neoplasm Father Acute myocardial infarction, Onset Age: 54 Family history of cardiovascular disease Grandparent Family history of lung cancer Family history of malignant neoplasm of brain Social History Social History Smoking packs per day: 3 Smoking cigarettes per day: 60.0 Years smoked: 50 Smoking pack-years: 150.00 Smoking status: Current every day smoker Tobacco type: cigarettes Alcohol intake: never Substance use: never Substance use type: opiates and prescription drug Other substance usage details: chronic back pain Last use: daily norco; fentanyl Do You Feel Safe in your Home?: Yes Lack of Transportation: No Lack of Food: Never True Current Housing: Decline to Answer Concerned About Future Housing: Decline to Answer Difficulty Paying Gas/Electric Bills: Decline to Answer Difficulty Paying for Meds: Decline to Answer Currently Unemployed: Decline to Answer Education: Don't Know Difficulty w/ Childcare or Family Care: Decline to Answer Living arrangements: with family Spiritual care concerns: No Meds Home Medications and Allergies Home Medications ?Medication ?Instructions ?Recorded ?Confirmed ?Type fentanyl 50 mcg/hr transdermal 1 patch transdermal Q48H 01/06/21 05/05/24 History patch oxycodone-acetaminophen 10 mg-325 1 tablet PO Q6H PRN pain 01/06/21 05/05/24 History mg tablet [id number] oil-omega 3-vit E 1 cap PO DAILY 03/08/21 05/05/24 History 50 mg-550 mg-300 mg-30 unit capsule propranolol 60 mg capsule,24 60 mg PO DAILY #90 caps 09/05/23 05/05/24 Rx hr,extended release meloxicam 7.5 mg tablet See Rx Instructions .Route 09/12/23 05/05/24 Rx .COMPLEX #90 tabs tizanidine 4 mg tablet 4 mg PO TID PRN muscle spasticity 09/12/23 05/05/24 Rx #60 tabs simvastatin 40 mg tablet 40 mg PO DAILY #90 tabs 11/29/23 05/05/24 Rx lisinopril 20 See Rx Instructions .Route 01/29/24 05/05/24 Rx mg-hydrochlorothiazide 12.5 mg .COMPLEX #90 tabs tablet trazodone 150 mg tablet 150 mg PO QHS #90 tabs 03/20/24 05/05/24 Rx Allergies Allergy/AdvReac Type Severity Reaction Status Date / Time No Known Allergies Allergy Unknown Verified 02/15/24 15:33 Vital Signs Vital Signs - 24 hr 05/05/24 08:59 05/05/24 09:06 05/05/24 11:32 Temperature 97.7 F Pulse Rate 81 80 69 Respiratory Rate 19 14 Blood Pressure 114/60 114/78 Pulse Oximetry 95 96 Oxygen Delivery Room Air Exam Narrative: General: Chronically ill, no acute distress HEENT: normocephalic, atraumatic. Mucous membranes moist. EOMI, PERRLA, bilateral sclera anicteric, no conjunctival injection. Neck supple without JVD, lymphadenopathy, or bruit. Respiratory: Diminished Cardiovascular: Regular rate and rhythm, normal S1-S2 upon ascultation. No murmurs, rubs, or clicks. PMI is nondisplaced, capillary refill less than 3 second. Abdomen: Soft, round, no pulsatile masses, nondistended and nontender. No rebound, no guarding. No CVA tenderness, no hepatosplenomegaly. Bowel sounds present to all four quadrants. No high pitch or tinkling sounds, resonant to percussion. Extremities: No cyanosis, clubbing, or edema present. Pulses are palpable 2/2. Active ROM to all four extremities. Neuro: Alert and orientated x 4. PERRLA. Cranial nerves 2-12 intact without focal deficit. Skin: Warm, dry, and intact, without rash, erythema, or lesion. Psych: pleasant, cooperative, normal speech, normal affect, no hallucinations, no dysarthia H&P: Results Labs Labs: Short CBC 05/05/24 Range/Units 09:06 WBC 13.9 H (4.5-10.0) K/mm3 Hgb 12.3 L (14.0-18.0) g/dL Hct 36.3 L (42.0-52.0) % Plt Count 186 (150-375) k/mm3 BMP 05/05/24 09:06 Sodium 137 Potassium 4.0 Chloride 101 Carbon Dioxide 27 BUN 35 H Creatinine 1.40 H Glucose 152 H Calcium 9.7 Cardiac Enzymes 05/05/24 Range/Units 09:06 Total Creatine Kinase 35 L (55-170) U/L Troponin I < 0.012 (0.000-0.034) ng/mL Liver Function 05/05/24 Range/Units 09:06 Total Bilirubin 1.1 (0.2-1.3) mg/dL AST 19 (17-59) U/L ALT 11 (6-50) U/L Alkaline Phosphatase 83 (38-126) U/L Albumin 3.9 (3.5-5.1) g/dL Urine 05/05/24 Range/Units 10:44 Urine Color Yellow (Yellow) Urine Appearance Clear (Clear) Urine pH 5.5 (5.0-9.0) Ur Specific [place] 1.019 (1.001-1.035) Urine Protein Trace (Negative) mg/dL Urine Glucose (UA) Negative (Negative) mg/dL Assessment and Plan Assessment and plan (1) Altered mental state: Code(s): R41.82 - Altered mental status, unspecified Status: Acute Assessment and Plan: U tox negative UA negative Head CT no acute findings Requesting medical records from [facility] Orthostatic vital signs Echo pending (2) Pneumonia: Code(s): J18.9 - Pneumonia, unspecified organism Status: Acute Assessment and Plan: Vancomycin and cefepime IVF for hydration (3) History of lung cancer: Code(s): Z85.118 - Personal history of other malignant neoplasm of bronchus and lung Status: Acute Assessment and Plan: With new mass Patient will need to follow up with his oncologist at [facility] outpatient (4) Essential (primary) hypertension: Code(s): I10 - Essential (primary) hypertension Status: Acute Assessment and Plan: Hold home antihypertensives tell syncopal workup is completed (5) Mixed hyperlipidemia: Code(s): E78.2 - Mixed hyperlipidemia Status: Acute Assessment and Plan: Continue home statin (6) Brain cancer: Code(s): C71.9 - Malignant neoplasm of brain, unspecified Status: Acute Assessment and Plan: History of resection CT shows no new tumor Plan Heavy smoker nicotine patch and gum Quality VTE Prophylaxis VTE prophylaxis: mechanical ordered and pharmacologic ordered Hospitalist [facility] Advance Care Plan I have confirmed that the patient's Advanced Care Plan is present, code status is documented, or surrogate decision maker is listed in patient medical record.: Yes Medication Reconciliation I have utilized all available resources to obtain, update and review the patients current medications (includes all prescriptions, OTC, herbals, cannabis, and nutritional supplements).: Yes
[2024-05-05] MEDS: CEFEPIME 2 GM/NS 50 ML 2 GM/50 ML BAG IVPB (12:55)
[2024-05-05 13:34] LABS: CRP 18.9 mg/dL (<1.0)
[2024-05-05 14:13] LABS: MRSA (PCR) NOT DETECTED (NOT DETECTE)
--- NOTE | 2024-05-05 14:45 | ADMGEN ---
This patient, Manny Pedro, was admitted to Medical Room 253-01. Patient/family oriented to hospital policies and general routines including ID bracelet, bed and alarms, visiting hours, pain management, procedures, bathroom and other care routines, personal items, smoking policy, room service/diet, and visiting hours. Information on how to activate the Rapid Response Team has been discussed. Patient/Family are encouraged to report perceived risks to care and to ask questions if they do not understand what they are told or what they should do.
[2024-05-05] MEDS: HYDROcodone/acetaminophen (*CRX) 5-325 MG TABLET 1 TAB PO ×2 (15:12→20:23)
[2024-05-05] MEDS: SODIUM CHLORIDE 0.45% 1,000 ML 100 ML IV CONT (15:13)
[2024-05-05] MEDS: NICOTINE (*PBKC) 21 MG PATCH 1 PATCH TRANSDERM (18:47)
[2024-05-05] MEDS: traZODone HCL 50 MG TABLET 150 MG PO (20:24)
[2024-05-05] MEDS: oxyCODONE/ACETAMINOPHEN (*CRX) 10-325 MG TABLET 1 TAB PO (23:13)
[2024-05-06] VITALS (9 sets, daily range): BP systolic 120–143; BP diastolic 50–85; PULSE 73–94; RESP 16–20; TEMP 36.2–36.7; O2SAT 97–100; BMI 16.0
--- NOTE | 2024-05-06 | ECHO_ITS ---
Patient Info Name: Manny Pedro Age: 74 years : 1950 Gender: Male Ht: 66 in Wt: 99 lbs BSA: 1.43 m2 HR: 85 bpm BP: 120 / 50 mmHg Technical Quality: Good Exam Date: 05/06/2024 3:11 PM Exam Location: Echo Lab Patient Status: Outpatient Admit Date: 05/05/2024 Staff Ordering Physician: Yamini Dixon APRN Operator Weapon Locating Radar: Franchesca Samuels RDCS Attending Provider: Kellee Lala APRN Referring Physician: Destiny CAMARA; Exam Type: CA echo doppler w bubble study Study Info Indications R55 - Syncope and collapse Complete two-dimensional, color flow and Doppler transthoracic echocardiogram is performed with agitated saline. Contrast/Agitated Saline Contrast/Ag. Saline: Agitated Saline Amount: 20.00 ml Existing IV Access: Yes IV Access Condition: patent with no signs of infiltration Summary 1. Left ventricular chamber dimension is normal. 2. Left ventricular systolic function is normal, estimated at 65-70%. 3. The left ventricular diastolic function is normal. 4. E/e' 9 is minimally elevated. 5. There is mild aortic valve sclerosis. 6. There is trace mitral valve regurgitation. 7. Mild pulmonary hypertension, estimated pulmonary arterial systolic pressure is 43 mmHg. Left Ventricle E/e' 9 is minimally elevated. Left ventricular chamber dimension is normal. Left ventricular systolic function is normal, estimated at 65-70%. The left ventricular diastolic function is normal. Right Ventricle Right ventricular systolic function is normal and with normal TAPSE 2.1 cm. Right ventricular chamber dimension is normal. Left Atria Left atrial chamber dimension is normal. Right Atria Right atrial chamber dimension is normal. Atrial Septum Agitated saline injection with and without valsalva maneuver opacified right side cardiac chambers without shunt to left side cardiac chambers. Intact interatrial septum visualized by 2D and agitated saline imaging. Aortic Valve The aortic valve is trileaflet. There is mild aortic valve sclerosis. There is no aortic valve stenosis. There is no aortic valve regurgitation. Pulmonic Valve There is no pulmonic regurgitation. Mitral Valve There is no mitral valve stenosis. There is trace mitral valve regurgitation. Tricuspid Valve There is no tricuspid valve regurgitation. Mild pulmonary hypertension, estimated pulmonary arterial systolic pressure is 43 mmHg. Pericardium/Pleural There is no pericardial effusion. Inferior Vena Cava Normal inferior vena cava with >50% collapse upon inspiration consistent with normal right atrial pressure, 5 mmHg. Aorta The aortic root size at the sinus of Valsalva is normal. Left Ventricular Outflow Tract Name Value Normal LVOT 2D LVOT Diameter 1.9 cm LVOT Doppler LVOT Peak Gradient 3 mmHg LVOT Mean Gradient 1 mmHg LVOT VTI 17 cm LVOT VTI/AV VTI Ratio 0.6 LVOT Stroke Volume 49 ml LVOT CO 3.6 l/min LVOT CI 2.5 l/min/m2 Pulmonic Valve Name Value Normal RVOT Doppler RVOT Peak Gradient 2 mmHg PV Doppler PV Peak Gradient 3 mmHg Mitral Valve Name Value Normal MV Doppler MV Decel Mower 434 cm/s2 MV PHT 56 ms MV Area (PHT) 3.9 cm2 4.0-5.0 MV Diastolic Function MV E Peak Velocity 84 cm/s MV A Peak Velocity 65 cm/s MV E/A 1.3 MV Decel Time 193 ms MV Annular TDI MV E/e' (Septal) 9.6 <=8.0 MV E/e' (Lateral) 9.9 <=8.0 MV E/e' (Average) 9.7 Tricuspid Valve Name Value Normal TV Regurgitation Doppler TR Peak Velocity 308 cm/s TR Peak Gradient 38 mmHg Estimated PAP/RSVP RA Pressure 5 mmHg <=5 PA Systolic Pressure 43 mmHg <36 RV Systolic Pressure 43 mmHg <36 Aorta Name Value Normal Ascending Aorta Ao Root Diameter (MM) 3.2 cm Ao Root Diam Index (MM) 2.2 cm/m2 Aortic Valve Name Value Normal AV Doppler AV Peak Velocity 147 cm/s AV Peak Gradient 9 mmHg AV Mean Gradient 3 mmHg AV VTI 27 cm AV Area (Cont Eq VTI) 1.8 cm2 >=3.0 AV Area (Cont Eq Cornel) 1.7 cm2 AV Regurgitation 2D LVOT Area 2.9 cm2 Ventricles Name Value Normal LV Dimensions 2D/MM IVS Diastolic Thickness (2D) 0.6 cm 0.6-1.0 LVID Diastole (2D) 4.6 cm 4.2-5.8 LVIW Diastolic Thickness (2D) 0.6 cm 0.6-1.0 LVID Systole (2D) 2.7 cm 2.5-4.0 LVOT Diameter 1.9 cm LV Mass (2D Cubed) 79.60 g 88.00-224.00 LV Mass Index (2D Cubed) 56 g/m2 49-115 Relative Wall Thickness (2D) 0.24 LV Fractional Shortening/Ejection Fraction 2D/MM LV Fractional Shortening (2D) 41 % 25-43 LV EF (2D Teicholz) 71 % 52-72 LV Diastolic Volume (4C MOD) 74 ml LV EF (4C MOD) 63 % LV Diastolic Volume (2C MOD) 59 ml LV EF (2C MOD) 59 % LV Diastolic Volume (BP MOD) 68 ml 62-150 LV Diastolic Volume Index (BP MOD) 48 ml/m2 34-74 LV Systolic Volume (BP MOD) 27 ml 21-61 LV Systolic Volume Index (BP MOD) 19 ml/m2 11-31 LV EF (BP MOD) 60 % 52-72 LV Diastolic Length (4C) 7.4 cm LV Systolic Length (4C) 7.1 cm LV Stroke Volume (4C MOD) 47 ml Atria Name Value Normal LA Dimensions LA Dimension (MM) 3.9 cm 3.0-4.1 LA Volume (4C A-L) 41 ml LA Volume (BP A-L) 41 ml RA Dimensions RA Area (4C) 16.6 cm2 <=18.0 Report Signatures
[2024-05-06] MEDS: SODIUM CHLORIDE 0.45% 1,000 ML 100 ML IV CONT ×2 (04:07→12:14)
[2024-05-06] MEDS: HYDROcodone/acetaminophen (*CRX) 5-325 MG TABLET 1 TAB PO ×2 (05:22→20:30)
[2024-05-06 05:36] LABS: Basophils Percent Auto 0.2 % (0.2-1.2); Eosinophils Absolute Auto 0.2 K/mm3 (0-0.3); Eosinophils Percent Auto 1.8 % (0-4.4); Hematocrit 29.8 % (42.0-52.0); Hemoglobin 9.7 g/dL (14.0-18.0); Immature Granulocyte Absolute 0.04 K/mm3 (0.00-0.031); Immature Granulocyte Percent A 0.5 % (0-0.5); Lymphocytes Absolute Auto 1.17 K/mm3 (0.9-3.2); Lymphocytes Percent Auto 13.4 % (18.3-44.2); Mean Corpuscular HGB Conc 32.6 g/dl (32-36); Mean Corpuscular Volume 95.2 fl (80-100); Monocytes Absolute Auto 0.5 K/mm3 (0.1-0.6); Monocytes Percent Auto 5.8 % (2.6-8.5); Neutrophils Absolute Auto 6.9 K/mm3 (1.3-6.7); Neutrophils Percent Auto 78.3 % (45.5-73.1); Platelet Count Result 160 k/mm3 (150-375); Red Blood Count 3.13 M/mm3 (4.6-6.20); Red Cell Distribution Width 12.3 % (11.5-14.5); White Blood Count 8.8 K/mm3 (4.5-10.0)
[2024-05-06 05:46] LABS: Anion Gap 7 mmol/L (4-12); Blood Urea Nitrogen 21 mg/dL (9-20); Calcium 8.8 mg/dL (8.4-10.2); Carbon Dioxide 26 mmol/L (22-30); Chloride 101 mmol/L (98-107); Estimated CRCL calculation 40 ml/min; Estimated Glomerular Filt Rate > 60; Glucose 116 mg/dL (65-110); Potassium 3.5 mmol/L (3.4-5.0); Sodium 134 mmol/L (137-145)
[2024-05-06] MEDS: PROPRANOLOL HCL 60 MG CAPSULE CR PO (08:28)
[2024-05-06] MEDS: SIMVASTATIN 20 MG TABLET 40 MG PO (08:28)
[2024-05-06] MEDS: oxyCODONE/ACETAMINOPHEN (*CRX) 10-325 MG TABLET 1 TAB PO (08:28)
[2024-05-06] MEDS: MELOXICAM 7.5 MG TABLET BY MOUTH (08:28)
[2024-05-06] MEDS: ENOXAPARIN 30 MG/0.3 ML SYRINGE SUB-Q (08:29)
[2024-05-06] MEDS: NICOTINE (*PBKC) 21 MG PATCH 1 PATCH TRANSDERM (08:29)
[2024-05-06] MEDS: NICOTINE (*PBKC) 4 MG GUM PO (08:33)
[2024-05-06] MEDS: fentaNYL (*CRX) 50 MCG PATCH TRANSDERM (12:03)
[2024-05-06] MEDS: CEFEPIME 2 GM/NS 50 ML 2 GM/50 ML BAG IVPB (12:08)
--- NOTE | 2024-05-06 12:29 | P.PNIM_ITS ---
Progress Note: A&P Assessment and Plan (1) Pneumonia: Code(s): J18.9 - Pneumonia, unspecified organism Status: Acute Assessment and Plan: * MRSA negative * Vancomycin discontinued * Continue cefepime * Chest x-ray showing mild bibasilar hazy and interstitial disease reflective of mild pulmonary edema or chronic interstitial changes, right apical cavitary lesion with air-fluid level measuring 5.4 cm in diameter * Chest/abdomen/pelvis CT showed moderate emphysema with air-fluid level within a thick walled cavitary mass at the right apex which could be malignant or infectious in etiology, 2.3 x 3.4 x 4.7 cm lobular mass at the left helium most suspicious for metastatic disease, mediastinal bilateral supraclavicular and left axillary lymphedema PAP the suspicious for additional metastatic disease, multiple bilateral pulmonary nodules most prominent in the bilateral lower lobes which could be additional metastatic disease or infectious in etiology. * Blood cultures were obtained and are pending * Initial white blood cell count 13.9, now down to 8.8 today * Respiratory panel negative (2) Altered mental state: Code(s): R41.82 - Altered mental status, unspecified Status: Acute Assessment and Plan: * Head CT was negative for any acute intracranial abnormality, shown encephalomalacia of the right parietal lobe consistent with prior tumor resection * Echocardiogram pending results * UA negative * Continue neuro checks * Currently alert and oriented x4 (3) History of lung cancer: Code(s): Z85.118 - Personal history of other malignant neoplasm of bronchus and lung Status: Acute Assessment and Plan: * Chest/abdomen/pelvis CT showed moderate emphysema with air-fluid level within a thick walled cavitary mass at the right apex which could be malignant or infectious in etiology, 2.3 x 3.4 x 4.7 cm lobular mass at the left helium most suspicious for metastatic disease, mediastinal bilateral supraclavicular and left axillary lymphedema PAP the suspicious for additional metastatic disease, multiple bilateral pulmonary nodules most prominent in the bilateral lower lobes which could be additional metastatic disease or infectious in etiology. * Chest x-ray showing mild bibasilar hazy and interstitial disease reflective of mild pulmonary edema or chronic interstitial changes, right apical cavitary le sahun with air-fluid level measuring 5.4 cm in diameter * His oncologist is at [facility], awaiting records. He is currently not on any active treatment. He states he has been diagnosed 10 years ago and has been in remission. * Oncology consulted, awaiting Recs (4) Essential (primary) hypertension: Code(s): I10 - Essential (primary) hypertension Status: Acute Assessment and Plan: * Blood pressure ranging 120/50 to 133/64 * Continue hydrochlorothiazide lisinopril propranolol (5) Mixed hyperlipidemia: Code(s): E78.2 - Mixed hyperlipidemia Status: Acute Assessment and Plan: * Continue simvastatin (6) Brain cancer: Code(s): C71.9 - Malignant neoplasm of brain, unspecified Status: Acute Assessment and Plan: * Head CT showed encephalomalacia of the right parietal lobe consistent with prior tumor resection * No acute infarct, hemorrhage, mass or mass effect (7) Protein-calorie malnutrition, severe: Code(s): E43 - Unspecified severe protein-calorie malnutrition Status: Acute Assessment and Plan: * 45.1 kg, BMI 16.0 * Recently lost 10 lb unintentionally * Dietitian consulted * Ensure supplement ordered with meals Time Spent With Patient Time with patient: Greater than 35 minutes Subjective Date/time seen: 05/06/24 12:29 Interval history: Interval history: This is a 74-year-old male with a significant past medical history of lung cancer with resection and brain cancer with prior tumor resection who presented to the hospital with altered mental status. Workup in the hospital included a head CT which was negative for any acute intracranial abnormality, shown encephalomalacia of the right parietal lobe consistent with prior tumor resection, no acute infarct hemorrhage or mass detected. Cervical spine CT showed mild cervical and upper thoracic spondylosis with C3 through T1 posterior spinal fusion with additional C3 through C7 anterior spinal fusion, moderate emphysema with air fluid level within a partially visualized 5.4 x 4.5 cm thick walled cavitary lesion at the right apex which could be either infectious or malignant. Chest x-ray showed right apical cavitary lesion with air-fluid level measuring 5.4 cm in diameter, mild bibasilar hazy and interstitial disease could reflect mild pulmonary edema chronic interstitial changes. CT of the chest/abdomen/pelvis shown moderate emphysema with a thick walled cavitary mass at the right apex which could be malignant or infectious Francoise etiology, 2.3 x 3.4 x 4.7 cm lobular mass at the left helium most suspicious for metastatic disease, mediastinal bilateral supraclavicular and left axillary lymphedema PAP the suspicious for additional metastatic disease, multiple bilateral pulmonary nodules most prominent in the bilateral lower lobes which could be additional metastatic disease or infectious etiology. Initial labs showed white blood cell count of 13.9, hemoglobin 12.3, INR 1.3, creatinine 1.40, EGFR 50, C reactive protein 18.9, troponin negative, TSH 1.0. UA was obtained and showed trace urine ketone otherwise negative. MRSA was negative. Urine drug screen was negative. Respiratory panel was negative. Blood cultures were obtained and pending. Echocardiogram today shown normal LV systolic function with an estimated EF of 65-70%, normal LV diastolic function, mild pulmonary hypertension with an estimated pulmonary arterial systolic pressure of 43 mmHg. Patient was started on vancomycin and cefepime for possible community-acquired pneumonia in the immunocompromised patient. MRSA was negative and vancomycin was discontinued. Subjective: Patient denies any fever, chills, nausea, vomiting, diarrhea, abdominal pain, chest pain, shortness a breath. He also denies any vision changes, headache, lightheadedness, dizziness. Labs and imaging reviewed. Review of Systems Constitutional: Constitutional: Reports as per HPI and Reports no additional constitutional complaints Eyes: Eyes: Reports as per HPI and Reports no additional eye complaints ENT: Reports system reviewed and no additional complaints, except as documented and Reports as per HPI Cardiovascular: Cardiovascular: Reports as per HPI and Reports no additional cardiovascular complaints Respiratory: Respiratory: Reports as per HPI and Reports no additional respiratory complaints Gastrointestinal: Gastrointestinal: Reports as per HPI and Reports no additional gastrointestinal complaints Genitourinary: Genitourinary: Reports no additional male genitourinary complaints and Reports as per HPI Musculoskeletal: Musculoskeletal: Reports no additional musculoskeletal complaints and Reports as per HPI Integumentary/Breasts: Skin/Breast: Reports system reviewed and no additional complaints, except as docu and Reports as per HPI Neurologic: Reports system reviewed and no additional complaints, except as documented and Reports as per HPI Psychiatric: Psychiatric: Reports no additional psychiatric complaints and Reports as per HPI Exam Narrative: General: In no acute distress, malnourished Head: atraumatic, no encephalopathy Eyes:PERRLA, sclera clear ENT: moist mucous membranes, nasal passages clear Neck: supple, no JVD, no adenopathy, trachea midline Cardiac: Normal S1 and S2. RRR, No murmur, gallops or friction rubs, peripheral pulses intact. Respiratory: Lungs clear to auscultation, no adventitious lung sounds, currently on room air Gastrointestinal: soft, non-distended, non-tender, normoactive bowel sounds. : voiding without difficulty. Extremities: moves all extremities well, no edema Skin: clean, dry, intact. No wounds or lesions. Neuro: Alert and oriented x4, cranial nerves intact, no neuro deficits. Psych: normal mood, normal affect, interactive Objective Data Vital Signs Vital Signs: Vital Signs - 24 hr 05/05/24 13:05 05/05/24 14:35 05/05/24 14:45 Temperature Pulse Rate 76 77 Respiratory Rate 18 14 Blood Pressure 108/54 L 135/67 Pulse Oximetry 100 98 Oxygen Delivery Room Air 05/05/24 17:39 05/05/24 19:28 05/05/24 20:00 Temperature 98.3 F Pulse Rate 73 70 Respiratory Rate 12 17 Blood Pressure 140/57 L 135/62 Pulse Oximetry 100 97 Oxygen Delivery Room Air 05/05/24 23:36 05/06/24 03:59 05/06/24 08:28 Temperature 98.2 F 98.0 F Pulse Rate 83 85 85 Respiratory Rate 17 18 Blood Pressure 122/54 L 120/50 L Pulse Oximetry 96 97 Oxygen Delivery 05/06/24 08:30 Temperature Pulse Rate Respiratory Rate Blood Pressure Pulse Oximetry Oxygen Delivery Room Air Intake/Output Intake/Output: Intake & Output 05/03/24 05/04/24 05/05/24 05/06/24 23:59 23:59 23:59 23:59 Intake Total 1540 2120 Balance 1540 2120 Meds/Results Medications: Active Medications Generic Name Dose Route Start Last Admin Trade Name Freq PRN Reason Stop Dose Admin Acetaminophen 650 mg 05/05/24 12:47 Acetaminophen 325 Mg Tablet PO Q4H PRN Mild Pain (1-3) or Fever Hydrocodone Bitart/Acetaminophen 1 tab 05/05/24 12:47 05/06/24 05:22 Hydrocodone/Acetaminophen (*Crx) 5-325 Mg Tablet PO 1 tab Q4H PRN Administration Moderate Pain (4-6) Docusate Sodium 100 mg 05/05/24 17:00 05/06/24 08:29 Docusate Sodium 100 Mg Capsule PO Not Given BID POLA Enoxaparin Sodium 40 mg 05/07/24 09:00 Enoxaparin 40 Mg/0.4 Ml Syringe SUB-Q DAILY [facility] Fentanyl 50 mcg 05/06/24 09:00 05/06/24 12:03 Fentanyl (*Crx) 50 Mcg Patch TRANSDERM 50 mcg Q48H POLA Administration Hydrochlorothiazide 12.5 mg 05/06/24 09:00 Hydrochlorothiazide 12.5 Mg Capsule PO QAM POLA Cefepime HCl 2 gm in 50 mls @ 100 mls/hr 05/06/24 13:00 05/06/24 12:08 Maxipime 2 Gm/Ns 50 Ml IVPB 100 mls/hr Q24H POLA Administration Sodium Chloride 1,000 mls @ 100 mls/hr 05/05/24 12:50 05/06/24 12:14 Sodium Chloride 0.45% IV CONT 100 mls/hr .Q10H POLA Administration Lisinopril 20 mg 05/06/24 09:00 Lisinopril 20 Mg Tablet PO QAM POLA Meloxicam 7.5 mg 05/06/24 09:00 05/06/24 08:28 Meloxicam 7.5 Mg Tablet BY MOUTH 7.5 mg DAILY POLA Administration Nicotine 1 patch 05/05/24 18:20 05/06/24 08:29 Nicotine (*Pbkc) 21 Mg Patch TRANSDERM 1 patch DAILY POLA Administration Nicotine Polacrilex 4 mg 05/05/24 18:19 05/06/24 08:33 Nicotine (*Pbkc) 4 Mg Gum PO 4 mg PRN PRN Administration Nicotine Cravings Ondansetron HCl 4 mg 05/05/24 12:47 Ondansetron Inj 4 Mg/2 Ml Vial IV PUSH Q6H PRN Nausea And Vomiting Oxycodone/Acetaminophen 1 tab 05/05/24 17:12 05/06/24 08:28 Oxycodone/Acetaminophen (*Crx) 10-325 Mg Tablet PO 1 tab Q6H PRN Administration PAIN RATED 7-10 Perflutren Lipid Microsphere 0 ml 05/05/24 20:47 Perflutren Lipid Microspheres 1.5 Ml Vial Diluted To 10 Ml Total Volume IV PUSH 05/08/24 20:48 ONCE PRN adequate visualization Protocol Propranolol HCl 60 mg 05/06/24 09:00 05/06/24 08:28 Propranolol Hcl 60 Mg Capsule Cr PO 60 mg DAILY POLA Administration Simvastatin 40 mg 05/06/24 09:00 05/06/24 08:28 Simvastatin 20 Mg Tablet PO 40 mg DAILY POLA Administration Trazodone HCl 150 mg 05/05/24 21:00 05/05/24 20:24 Trazodone Hcl 50 Mg Tablet PO 150 mg QHS POLA Administration Radiology Results: ITS Impressions Head CT 05/05/24 09:54 IMPRESSION: 1. No acute intracranial abnormality. 2: Encephalomalacia of the right parietal lobe, consistent with prior tumor resection. Cervical Spine CT 05/05/24 10:04 IMPRESSION: 1. Mild cervical and upper thoracic spondylosis with C3-T1 instrumented posterior spinal fusion with additional C3-C7 anterior spinal fusion without instrumentation. No acute osseous abnormality. 2. Moderate emphysema with air-fluid level within a partially visualized 5.4 x 4.5 cm thick-walled cavitary lesion at the right apex which could be either infectious or malignant in etiology. Consider dedicated chest CT for further evaluation. Chest X-Ray 05/05/24 10:05 Impression: Right apical cavitary lesion with air-fluid level measuring 5.4 cm in diameter. Contrast-enhanced chest CT recommended for further evaluation. Mild bibasilar hazy and interstitial disease could reflect mild pulmonary edema or chronic interstitial change. Chest/Abdomen/Pelvis CT 05/05/24 11:21 IMPRESSION: 1. 6Moderate emphysema with air-fluid level within a thick-walled cavitary mass at the right apex which could be malignant or infectious in etiology. 2.3 x 3.4 x 4.7 cm lobular mass at the left hilum most suspicious for metastatic disease. 3. Mediastinal, bilateral supraclavicular and left axillary lymphadenopathy suspicious for additional metastatic disease. 4. Multiple bilateral pulmonary nodules most prominent in the bilateral lower lobes which could be additional metastatic disease or infectious in etiology. 5. Cholelithiasis. 6. Prostatomegaly. Labs Labs: Laboratory Results - last 24 hr 05/05/24 05/05/24 05/06/24 09:06 12:45 05:10 WBC 8.8 RBC 3.13 L Hgb 9.7 L Hct 29.8 L MCV 95.2 MCH 31.0 MCHC 32.6 RDW 12.3 Plt Count 160 MPV 9.0 Immature Gran % (Auto) 0.5 Neut % (Auto) 78.3 H Lymph % (Auto) 13.4 L Tyler % (Auto) 5.8 Eos % (Auto) 1.8 Baso % (Auto) 0.2 Lymph # (Auto) 1.17 Tyler # (Auto) 0.5 Eos # (Auto) 0.2 Baso # (Auto) 0.0 Abs Immat Gran (auto) 0.04 H Absolute Neuts (auto) 6.9 H Absolute Nucleated RBC 0.000 Nucleated RBC % 0.0 Sodium 134 L Potassium 3.5 Chloride 101 Carbon Dioxide 26 Anion Gap 7 BUN 21 H D Creatinine 0.92 Estim Creat Clear Calc 40 Estimated GFR > 60 Glucose 116 H Calcium 8.8 C-Reactive Protein 18.9 H Nasal MRSA (PCR) Not detected Quality VTE Prophylaxis VTE prophylaxis: mechanical ordered and pharmacologic ordered
--- NOTE | 2024-05-06 13:11 | P.CDI_ITS ---
CDI Query Clarification Request BMI: 16.0 Nutritional Diagnostic Statement: Please refer to the comprehensive nutrition assessment for further information. If you agree with diagnosis of Severe protein calorie malnutrition related to inadequate energy intake as evidenced by pt report of inadequate po intake for greater than 1 month, a significant weight loss of -15% x 8 months, and NFPE findings for severe subcutaneous fat loss (cheeks) and severe muscle wasting (jainism, clavicle, shoulder). Please specify severity if known: * Mild * Moderate * Severe * Other/Unknown <Jennifer Harris RN - Last Filed: 05/06/24 13:12> Clarified Diagnosis Clarified Diagnosis: Already in my note Severe <Kellee Lala APRN - Last Filed: 05/06/24 18:00>
[2024-05-06] MEDS: traZODone HCL 50 MG TABLET 150 MG PO (20:30)
[2024-05-07 03:23] VITALS: BP 128/63; PULSE 71; RESP 18; TEMP 36.1; O2SAT 94
[2024-05-07 08:00] VITALS: BP 130/64; PULSE 69; RESP 12; O2SAT 97
[2024-05-07] MEDS: MELOXICAM 7.5 MG TABLET BY MOUTH (08:25)
[2024-05-07] MEDS: SIMVASTATIN 20 MG TABLET 40 MG PO (08:25)
[2024-05-07 08:26] VITALS: PULSE 72
[2024-05-07] MEDS: PROPRANOLOL HCL 60 MG CAPSULE CR PO (08:26)
[2024-05-07] MEDS: NICOTINE (*PBKC) 21 MG PATCH 1 PATCH TRANSDERM (08:26)
[2024-05-07] MEDS: ENOXAPARIN 40 MG/0.4 ML SYRINGE SUB-Q (08:26)
[2024-05-07] MEDS: HYDROcodone/acetaminophen (*CRX) 5-325 MG TABLET 1 TAB PO ×2 (08:27→13:22)
[2024-05-07] MEDS: DOCUSATE SODIUM 100 MG CAPSULE PO (08:27)
[2024-05-07] MEDS: NICOTINE (*PBKC) 4 MG GUM PO (08:32)
[2024-05-07 08:49] VITALS: BP 133/61; PULSE 73; RESP 12; O2SAT 94
[2024-05-07 08:50] VITALS: BP 127/69; PULSE 84; RESP 12; O2SAT 95
[2024-05-07 09:50] LABS: Hematocrit 30.1 % (42.0-52.0); Hemoglobin 10.3 g/dL (14.0-18.0); Mean Corpuscular HGB Conc 34.2 g/dl (32-36); Mean Corpuscular Hemoglobin 31.3 pg (26-34); Mean Corpuscular Volume 91.5 fl (80-100); Platelet Count Result 169 k/mm3 (150-375); Red Blood Count 3.29 M/mm3 (4.6-6.20); Red Cell Distribution Width 12.5 % (11.5-14.5); White Blood Count 8.1 K/mm3 (4.5-10.0)
[2024-05-07 10:09] LABS: Alanine Aminotransferase 15 U/L (6-50); Albumin Level 3.2 g/dL (3.5-5.1); Alkaline Phosphatase 93 U/L (38-126); Anion Gap 6 mmol/L (4-12); Aspartate Amino Transferase 25 U/L (17-59); Bilirubin,Total 0.8 mg/dL (0.2-1.3); Blood Urea Nitrogen 13 mg/dL (9-20); Calcium 9.5 mg/dL (8.4-10.2); Carbon Dioxide 28 mmol/L (22-30); Chloride 101 mmol/L (98-107); Estimated CRCL calculation 45 ml/min; Estimated Glomerular Filt Rate > 60; Glucose 154 mg/dL (65-110); Potassium 3.4 mmol/L (3.4-5.0); Sodium 135 mmol/L (137-145)
--- NOTE | 2024-05-07 11:20 | P.DS_ITS ---
DS: Admitting Diagnosis Discharge Date 05/07/24 Admitting Diagnosis altered mental status pneumonia history of lung cancer hypertension hyperlipidemia brain cancer DS: Discharge Diagnosis Discharge Diagnosis (1) Pneumonia: Code(s): J18.9 - Pneumonia, unspecified organism Status: Acute (2) Altered mental state: Code(s): R41.82 - Altered mental status, unspecified Status: Acute (3) History of lung cancer: Code(s): Z85.118 - Personal history of other malignant neoplasm of bronchus and lung Status: Acute (4) Essential (primary) hypertension: Code(s): I10 - Essential (primary) hypertension Status: Acute (5) Mixed hyperlipidemia: Code(s): E78.2 - Mixed hyperlipidemia Status: Acute (6) Brain cancer: Code(s): C71.9 - Malignant neoplasm of brain, unspecified Status: Acute (7) Protein-calorie malnutrition, severe: Code(s): E43 - Unspecified severe protein-calorie malnutrition Status: Acute DS: Summary Hospital Course Reason for hospitalization: altered mental status pneumonia history of lung cancer hypertension hyperlipidemia brain cancer Hospital Course: This is a 74-year-old male with a significant past medical history of lung cancer with resection and brain cancer with prior tumor resection who presented to the hospital with altered mental status. Workup in the hospital included a head CT which was negative for any acute intracranial abnormality, shown encephalomalacia of the right parietal lobe consistent with prior tumor resection, no acute infarct hemorrhage or mass detected. Cervical spine CT showed mild cervical and upper thoracic spondylosis with C3 through T1 posterior spinal fusion with additional C3 through C7 anterior spinal fusion, moderate emphysema with air fluid level within a partially visualized 5.4 x 4.5 cm thick walled cavitary lesion at the right apex which could be either infectious or malignant. Chest x-ray showed right apical cavitary lesion with air-fluid level measuring 5.4 cm in diameter, mild bibasilar hazy and interstitial disease could reflect mild pulmonary edema chronic interstitial changes. CT of the chest/abdomen/pelvis shown moderate emphysema with a thick walled cavitary mass at the right apex which could be malignant or infectious Francoise etiology, 2.3 x 3.4 x 4.7 cm lobular mass at the left helium most suspicious for metastatic disease, mediastinal bilateral supraclavicular and left axillary lymphedema PAP the suspicious for additional metastatic disease, multiple bilateral pulmonary nodules most prominent in the bilateral lower lobes which could be additional metastatic disease or infectious etiology. Initial labs showed white blood cell count of 13.9, hemoglobin 12.3, INR 1.3, creatinine 1.40, EGFR 50, C reactive protein 18.9, troponin negative, TSH 1.0. UA was obtained and showed trace urine ketone otherwise negative. MRSA was negative. Urine drug screen was negative. Respiratory panel was negative. Blood cultures were obtained and pending. Echocardiogram today shown normal LV systolic function with an estimated EF of 65-70%, normal LV diastolic function, mild pulmonary hypertension with an estimated pulmonary arterial systolic pressure of 43 mmHg. Patient was started on vancomycin and cefepime for possible community-acquired pneumonia in the immunocompromised patient. patient had echocardiogram done while inpatient which shown left ventricular systolic function as normal with an estimated EF of 65-70%, left ventricular diastolic function was normal, mild pulmonary hypertension with an estimated pulmonary arterial systolic pressure of 43 mmHg. MRSA was negative and vancomycin was discontinued. Patient was transition to Augmentin and azithromycin for community-acquired pneumonia. He was instructed to take his CT scan results to his oncology appointment. He denies any lightheadedness, dizziness, headache, vision changes at this time. He is stable for discharge at this time. Final diagnosis: community-acquired pneumonia, lung cancer Status at Discharge Cognitive/behavioral status at discharge: alert oriented x4 Functional status at discharge: independent ambulation Overall status at discharge: patient is progressing back to baseline Time Spent with Patient Time attestation: Total time spent providing and/or coordinating discharge services: Time spent: Greater than 30 minutes Exam Narrative: General: In no acute distress, malnourished Cardiac: Normal S1 and S2. RRR, No murmur, gallops or friction rubs, peripheral pulses intact. Respiratory: Lungs clear to auscultation, no adventitious lung sounds, currently on room air Gastrointestinal: soft, non-distended, non-tender, normoactive bowel sounds. : voiding without difficulty. Neuro: Alert and oriented x4 DS: Data Data Completed and Pending Completed studies during hospitalization: chest/abdomen/pelvis CT chest x-ray cervical spine CT head CT Pending studies at discharge: blood cultures Labs on day of discharge: Labs from last 24 hours 05/07/24 09:22 WBC 8.1 RBC 3.29 L Hgb 10.3 L Hct 30.1 L MCV 91.5 MCH 31.3 MCHC 34.2 RDW 12.5 Plt Count 169 MPV 9.0 Sodium 135 L Potassium 3.4 Chloride 101 Carbon Dioxide 28 Anion Gap 6 BUN 13 D Creatinine 0.82 Estim Creat Clear Calc 45 Estimated GFR > 60 Glucose 154 H Calcium 9.5 Total Bilirubin 0.8 AST 25 ALT 15 Alkaline Phosphatase 93 Total Protein 6.0 L Albumin 3.2 L Preliminary micro results at discharge 05/05/24 12:45 Blood Culture - Preliminary Blood 05/05/24 12:34 Blood Culture - Preliminary Blood Procedures/Treatments: none Imaging Radiologist's impression: EXAMINATION: CT chest abdomen pelvis w con DATE: 05/05/2024 10:38 INDICATION: Abnormal kidney labs. Cavitary mass at the right apex. TECHNIQUE: Computed tomography (CT) of the chest, abdomen, and pelvis was performed with 100 mL Omnipaque-350 intravenous contrast. Automated exposure control and iterative reconstruction technique were employed. The dose-length product was 282.43 mGy-cm. COMPARISON: PET/CT dated 04/03/[address] dated 03/20/2019 FINDINGS: CHEST CT: Again seen is moderate to severe emphysema. Again seen is an air-fluid level w ithin a 5.3 x 5.5 x 4.2 cm heterogeneously thick-walled cavitary mass at the right apex. Suture line located along the periphery of the mass suggesting a prior pulmonary wedge resection. There are few small satellite nodules immediately adjacent to a cavitary mass the largest measuring 11 mm in maximal diameter with central calcification suggesting possible sequela of old granulomatous disease. 6.3 x 3.4 x 4.7 cm heterogeneously enhancing left hilar mass with lobular margins which compresses the bronchus to the superior segment of the left lower lobe which is concerning for malignancy. There are a few additional scattered noncalcified pulmonary nodules in both lungs which are most numerous in the right lower lobe which could be either infectious or metastatic in etiology. The largest measures 12 mm in maximal diameter in the left lower lobe where there are some surrounding groundglass opacity which could be due to atelectasis or pneumonia. Heart size is normal. Atherosclerotic coronary artery calcific lesion. No pericardial effusion. Thoracic aorta is normal in caliber with no dissection. There are a few additional mildly prominent mediastinal and bilateral supraclavicular lymph nodes, the largest located lateral to the left thyroid lobe which measures up to 1.3 cm diameter which could be reactive or metastatic. There is stranding at the left axilla surrounding a few additional enlarged lymph nodes measuring up to 1.5 cm in maximal short axis diameter and similarly concerning for metastatic disease. Mild thoracic dextroscoliosis with mild spondylosis. Partially visualized instrumentation for posterior spinal fusion at the cervicothoracic junction extending into the cervical spine beyond the cephalad margin of the [id number]. ABDOMEN/PELVIS CT: Multiple relatively well-defined low-attenuation hepatic cysts measuring up to 1.4 cm in maximal diameter. There are several gallstones within the otherwise normal gallbladder. Spleen, pancreas and bilateral adrenal glands are normal. There are bilateral renal cysts, tiny at the lower pole of the left kidney and measuring up to 5.8 cm at the right kidney. No bowel obstruction. There is calcified atherosclerosis of the aorta and many of the other arteries. Prostatomegaly measuring 5.2 x 3.5 cm. Bladder is normal. No free intraperitoneal gas or fluid. No pathologically enlarged abdominal or pelvic lymphadenopathy. Mild lumbar levoscoliosis with moderate spondylosis. IMPRESSION: 1. 6Moderate emphysema with air-fluid level within a thick-walled cavitary mass at the right apex which could be malignant or infectious in etiology. 2.3 x 3.4 x 4.7 cm lobular mass at the left hilum most suspicious for metastatic disease. 3. Mediastinal, bilateral supraclavicular and left axillary lymphadenopathy suspicious for additional metastatic disease. 4. Multiple bilateral pulmonary nodules most prominent in the bilateral lower lobes which could be additional metastatic disease or infectious in etiology. 5. Cholelithiasis. 6. Prostatomegaly. Reviewed, dictated and finalized at location B. [facility] Clinical Indication: Weakness AP and lateral views of the chest: Comparison: 06/08/2017 Findings: There is hazy and interstitial bibasilar pulmonary disease. There is a cavitary lesion with air-fluid level on the right upper lobe/right lung apex measuring 5.4 cm in maximum diameter.. Cardiomediastinal silhouette is within normal limits. Bones and soft tissues are unremarkable. Impression: Right apical cavitary lesion with air-fluid level measuring 5.4 cm in diameter. Contrast-enhanced chest CT recommended for further evaluation. Mild bibasilar hazy and interstitial disease could reflect mild pulmonary edema or chronic interstitial change. Reviewed, dictated and finalized at [facility]. [facility] EXAMINATION: CT cervical spine wo con DATE: 05/05/2024 09:57 INDICATION: Altered mental status with fall and 1 day of weakness. TECHNIQUE: Computed tomography (CT) of the cervical spine was performed without intravenous contrast. Automated exposure control and iterative reconstruction technique were employed. The dose-length product was 137.45 mGy-cm. COMPARISON: None FINDINGS: Instrumented C3-T1 anterior spinal fusion with bilateral vertical shilo and pedicle screw fixation as well as cerclage wires about the C3-C4 and C7-T1 spinous processes. There is also anterior spinal fusion at C3-C7. There is straightening of the normal cervical lordosis and a mild upper thoracic kyphosis. Unfused vertebral body heights are normal. No acute fractures. Severe atlantoaxial osteoarthritis. Mild disc height loss at C2-C3, C7-T1 and at the visualized upper thoracic discs. No central canal stenosis. There is mild neural foraminal stenosis on the right at C2-C3 and C4-C5, the left T1-2 and on the right at T2-T3. Small amount of atherosclerotic calcific location at the bilateral carotid bulbs. Cervical soft tissues are unremarkable. Small right mastoid effusion. Moderate emphysema at the visualized upper lungs. There is a suture line along the margins of a partially visualized 5.4 x 4.5 cm thick- walled cavitary lesion at the right apex. There is an air-fluid level within the lesion which could be either infectious or malignant in etiology. There is some nodular thickening of the immediately adjacent posterior pleura. IMPRESSION: 1. Mild cervical and upper thoracic spondylosis with C3-T1 instrumented posterior spinal fusion with additional C3-C7 anterior spinal fusion without instrumentation. No acute osseous abnormality. 2. Moderate emphysema with air-fluid level within a partially visualized 5.4 x 4.5 cm thick-walled cavitary lesion at the right apex which could be either infectious or malignant in etiology. Consider dedicated chest CT for further evaluation. Reviewed, dictated and finalized at location B. [facility] EXAMINATION: CT brain wo con DATE: 05/05/2024 09:53 INDICATION: Altered mental status TECHNIQUE: Computed tomography (CT) of the head was performed without intravenous contrast. The dose-length product was 605.33 mGy-cm. Automated exposure control and iterative reconstruction technique were employed. COMPARISON: CT dated 10/05/2010 and MRI dated 08/19/2013 FINDINGS: There is encephalomalacia of the right parietal lobe consistent with prior tumor resection. No ventriculomegaly or midline shift. Basilar cisterns are patent. There is intracranial atherosclerosis. Orbits are symmetric. No acute infarction, hemorrhage, mass or mass effect. Midline sagittal images demonstrate a normal corpus callosum and craniovertebral junction. There are scattered mild periventricular and subcortical white matter changes, most likely related to small vessel ischemic disease (microangiopathy). There is a right parietal craniotomy defect. Paranasal sinuses and mastoids are pneumatized. IMPRESSION: 1. No acute intracranial abnormality. 2: Encephalomalacia of the right parietal lobe, consistent with prior tumor resection. Reviewed, dictated and finalized at location A. [facility] Discharge Plan Discharge Attending physician on discharge: Pool Danielle Discharging Clinician: Kellee Lala Anticipated Discharge Date/Time: 05/07/24 09:07 Patient Disposition: Home, Self-Care Activity: as tolerated Diet: as tolerated Discharge Instructions: * Follow up with your oncology team at [facility] as soon as possible, take results of CT scans with you to the appointment. * Finish all your antibiotics as directed,even if you are feeling better Patient Instructions: Antibiotic Form, Amoxicillin/Clavulanate Potassium (By mouth), Azithromycin (By mouth), Bacterial Pneumonia (DC) Patient Language: Zimbabwean Stand Alone Forms: General Discharge Information Follow-up/Referrals: Bret Schuler MD [Primary Care Provider] - 1 Week Discharge Medications: New azithromycin 500 mg tablet 500 mg PO DAILY 5 Days Qty: 5 0RF amoxicillin-pot clavulanate 875-125 mg tablet 1 tablet PO Q12H Qty: 10 0RF Continued propranolol 60 mg capsule,extended release 24 hr 60 mg PO DAILY Qty: 90 2RF oxycodone-acetaminophen 10-325 mg tablet 1 tablet PO Q6H PRN (Reason: pain) fentanyl 50 mcg/hr patch 72 hour 1 patch transdermal Q48H co [id number] oil-omega 3-[id number] tp-vi-[id number]-unit Capsule 1 cap PO DAILY tizanidine 4 mg tablet 4 mg PO TID PRN (Reason: muscle spasticity) Qty: 60 1RF meloxicam 7.5 mg tablet See Rx Instructions .ROUTE .COMPLEX Qty: 90 1RF Dose Instruction: TAKE 1 TABLET BY MOUTH DAILY Rx Instructions: TAKE 1 TABLET BY MOUTH DAILY simvastatin 40 mg tablet 40 mg PO DAILY Qty: 90 1RF Rx Instructions: DUE FOR APPOINTMENT FOR IN FEBRUARY lisinopril-hydrochlorothiazide 20-12.5 mg tablet See Rx Instructions .ROUTE .COMPLEX Qty: 90 1RF Dose Instruction: TAKE 1 TABLET BY MOUTH DAILY Rx Instructions: TAKE 1 TABLET BY MOUTH DAILY trazodone 150 mg tablet 150 mg PO QHS Qty: 90 1RF Date of admission: 05/07/24 09:28 Primary Care Provider: Bret Schuler Admitting Provider: Forrest Kaur Attending physician on admission: Kellee Lala Condition: Improved Quality VTE Prophylaxis VTE prophylaxis: mechanical ordered and pharmacologic ordered Hospitalist MIPS Heart Failure (Exclusion) Patient has history of Heart Transplant or Left Ventricular Assistive Device?: No IF YES, STOP HERE Heart Failure (Qualifier) Patient has current or prior documentation of LVEF less than or equal to 40%, or mod/servere depressed LVSF?: No IF NO, STOP HERE
[2024-05-07 14:00] VITALS: BP 103/61; PULSE 68; RESP 18; TEMP 36.8; O2SAT 98
--- OUTSIDE RECORDS SUMMARY | 2024-05-08 10:48 | XMS_ITS | Clinical Summary ---
Author Organization [facility] Address [address] [place] [address] Care Team Providers Care Body Service Team Member Name Role Phone Unavailable Primary Care Provider Unavailabl e Source Comments [facility],non-owned Affiliates and Associated Physician Practices is amultiple site organization consisting of ambulatory clinics and hospital sitesin [place], [place], [place] and [place]. This disclosure is being madepursuant to the Care Everywhere program and may not contain all information available regarding this patient. Last updated 17.[facility] Social History Tobacco Use Types Packs/Day Years [...]
--- OUTSIDE RECORDS SUMMARY | 2024-05-08 10:48 | XMS_ITS | Encounter Summary ---
Author Organization [facility] Healthcare Address [address] [place] [address] Care Team Providers Care Blood Coordinator Name Role Phone Julio Caballero MD Primary Care Provider Julio Caballero MD Unavailable Rudolph Chaves MD Unavailable [phone] Bret Schuler MD Primary Care Provider [phone] Encounter Details Date Type Department Care Team (Late st Contact Info) Description 04/22/2019 Telephone [facility] Advanced Medicine Radiation Oncology [address] [place] [address] Silva Padilla, RN Social History Tobacco Use Types Packs/Day Years Used Date Smoking Tobacco: Every Day Cigarettes 0.3 50 Smokeless Tobacco: Never Alcohol Use Standard Drinks/Week Comments No 0 (1 standard drink = 0.6 oz pur e alcohol) Sex and Gender Information Value Date Recorded Sex Assigned at Not on file 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 documented as of this encounter Visit Diagnoses Diagnosis History of lung cancer- Primary Personal history of malignant neoplasm of bronchus and lung documented in this encounter Orders Lab Orders Without Results Count Last Ordered D ate First Ordered Date PT+PTT+INR 1 04/22/2019 documented in this encounter Care Teams Blood Coordinator Relationship Specialty Start Date End Date Julio Caballero MD [address] [place] [address] PCP - General 06/02/16 05/14/23 Bret Schuler MD [address] [place] [address] [place] [address] PCP - General Family Medicine 05/15/23 Julio Caballero MD [address] [place] [address] Referring Physician Family Medicine 04/03/19 Rudolhp Chaves MD [address] [place] [address] Radiation Oncologist Radiation Oncology 04/21/19 documented as of this encounter
--- OUTSIDE RECORDS SUMMARY | 2024-05-08 10:48 | XMS_ITS | Referral Summary ---
Author Organization 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 Gender Identity Not on file Sexual Orientation Not on file Occupation Industry Job Start Date Job End Date retired Not on file Not on file Not on file Last Filed Vital Signs Vital Sign Reading Time Taken Comments Blood Pressure 127/73 02/27/2024 9:52 AM AUTOCLAVE OPERATOR Pulse 69 02/27/2024 9:52 AM AUTOCLAVE OPERATOR Temperature 36.3 ??C (97.3 ??F) 02/27/2024 9:52 AM CS T Respiratory Rate 10 02/27/2024 9:52 AM AUTOCLAVE OPERATOR Oxygen Saturation 97% 02/27/2024 9:52 AM AUTOCLAVE OPERATOR Inhaled Oxygen Concentration - - Weight 54.4 kg (120 lb) 11/29/2023 8:53 AM CDT Height 167.6 cm (5' 6 ) 11/29/2023 8:53 AM CDT Body Mass Index 19.37 11/29/2023 8:53 AM CDT Plan of Treatment Not on file Goals Goal Patient Goal Type Associated Problems Recent Progress Patient-Stated? Author CCM Chronic Pain Care Plan Chronic Care Management No change(02/08 9:53 AM AUTOCLAVE OPERATOR) No Preeti Pena Note: Problem: Chronic Pain [...] on stairs Contact your local community or [facility] for information on exercise, fall prevention programs, or options for improving home safety. Medical Devices Implanted Type Area Ruby On Rails Engineer Device Identifier Shelf Expiration Date Model / Serial / Lot Metal Neck Description:Neck and back fr om surgery Insurance MEDICARE SOLUTIONS [facility] MEDICARE [facility] Address: [address] [address] [place] [address] [facility] MDCR HMO REF IDPA MEDICARE SOLUTIONS Advance Directives For more information, please contact: [phone] * Full Code (Latest Code Status on File) Date Activated Date Inactivated Comments 05/20/2019 12:15 PM 05/21/2019 4:39 AM * Full Code Date Activated Date Inactivated Comments 05/01/2019 11:19 AM 05/02/2019 4:34 AM Care Teams Promotions Executive Relationship Specialty Start Date End Date Bret Schuler MD [address] [place] [address] [place] [address] PCP - General Family Medicine 05/15/23 Julio Caballero MD [address] [place] [address] Referring Physician Family Medicine 04/03/19 Rudolph Chaves MD [address] [place] [address] Radiation Oncologist Radiation Oncology 04/21/19
--- OUTSIDE RECORDS SUMMARY | 2024-05-08 10:48 | XMS_ITS | Continuity of Care Document ---
Author Name [facility] Organization [facility] Care Team Providers Care Staff Electronic Warfare Officer Name Role Phone [facility] Unavailable Unavailable Problems Combined list of problems from Department of Defense and Veterans Affairs facilities. It does not include entries that were removed or entered in error. Problem Status Onset Date Problem Type Date of Resolution Comments Source Adjustment Disorder W/Anxiety Active Condition [facility] Anxiety (SNOMED CT 03508226) Active Condition [facility] Benign essential hypertension (SNOMED CT 2204905) Active Condition [facility] Bilateral shoulder joint pain Active Condition [facility] Depression Active Condition [facility] Herpes Genitalis Active Condition Nov 12, 2006 Entered By: RONY SCHUMACHER Comment: no outbreak for 1 year [facility] History of cervical spine fusion (SNOMED CT 0449794488857) Active Condition Nov 12, 2006 Entered By: RONY SCHUMACHER Comment: patient has had 2 surgeries and has a shilo in place. [facility] Hypercalcemia Active Condition [facility] Hypokalemia * (ICD-9-CM 276.8) Active Condition [facility] Lung Cancer (SCT 08041828) Active Condition Nov 04, 2019 Entered By: PAULIE LIZARRAGA Comment: recurrent; seeing Dmitriy, pending surgery or radiation tx [facility] Mixed hyperlipidemia (SNOMED CT 405064153) Active Condition [facility] Mood Disorder NOS Active Condition [facility] Substance-Induced Mood Disorder Active Condition [facility] Tobacco use Active Condition [facility] Carcinoma of lung Inactive Condition 11/04/2019 [facility] Degenerative Joint Disease Inactive Condition 11/04/2019 Nov 12, 2006 Entered By: RONY SCHUMACHER Comment: right knee [facility] Hyperkalemia * (ICD-9-CM 276.7) Inactive Condition 04/12/2007 [facility] Low Back Pain Inactive Condition 11/04/2019Nov Entered By: RONY SCHUMACHER Comment: had discectomy in the [facility] Medications Combined list of outpatient medications [...] DAY NEEDED ORAL ACTIVE HOWARD FARMER 2020 [facility] FENTANYL 25MCG/HR PATCH APPLY 1 PATCH (25MCG) TO SKIN SITE EVERY 72 HOURS TRANSD ERMAL ACTIVE PHAM SCHUMACHER 2006 [facility] FISH OIL CAP/TAB TAKE 1 CAP/TAB BY MOUTH ORAL ACTIVE HOWARD FARMER 2020 [facility] HYDROCHLORO THIAZIDE 12.5MG/DYAAN NOPRIL 20MG TAB TAKE ONE TABLET BY MOUTH EVERY MORNING ORAL ACTIVE HOWARD FARMER 2020 [facility] LEVETIRACET AM 500MG TAB TAKE ONE TABLET BY MOUTH TWICE A DAY ORAL ACTIVE HOWARD FARMER 2020 [facility] MELOXICAM 7.5MG TAB TAKE ONE TABLET BY MOUTH ONCE A DAY ORAL ACTIVE HOWARD FARMER 2020 [facility] MULTIVITAMI NS CAP/TAB TAKE ONE TABLET BY MOUTH ONCE A DAY ORAL ACTIVE HOWARD FARMER 2020 [facility] OXYCODONE/A CETAMINOPHE N (UD) TAB TAKE 5/325MG BY MOUTH FOUR TIMES A DAY ORAL ACTIVE PHAM SCHUMACHER 2006 [facility] SIMVASTATIN 80MG TAB TAKE ONE-HALF TABLET BY MOUTH EVERY EVENING ORAL ACTIVE HOWARD FARMER 2020 [facility] TIZANIDINE HCL 4MG TAB TAKE ONE TABLET BY MOUTH ONCE A DAY ORAL ACTIVE HOWARD FARMER 2020 [facility] TRAZODONE HCL 100MG TAB TAKE ONE-HALF TABLET BY MOUTH AT BEDTIME ORAL ACTIVE HOWARD FARMER 2020 [facility] Immunizations Combined list of available immunizations from the Department of Defense and Veterans Affairs facilities. Immunization Series Date Given Administered By Site Reaction Lot Number CVX Code Drug Geomatics Professor Status Comments Source COVID-19, MRNA, LNP-S, BIVALENT BOOSTER, PF, 30 MCG/0.3 ML DOSE 1 2021 300 complet ed PFR; [id number]; 3 [facility] INFLUENZA VACCINE, QUADRIVALENT, ADJUVANTED 2021 205 complet ed [facility] COVID-19 (MODERNA), MRNA, LNP-S, PF, 100 MCG/0.5ML DOSE OR 50 MCG/0.25ML DOSE 3 2020 207 complet ed [facility] DIVISIO N INFLUENZA VACCINE, QUADRIVALENT, ADJUVANTED 2020 205 complet ed [facility] COVID-19 (MODERNA), MRNA, LNP-S, PF, 100 MCG/0.5 ML DOSE 2 2020 207 complet ed [facility] COVID-19 (MODERNA), MRNA, LNP-S, PF, 100 MCG/0.5 ML DOSE 1 2020 207 complet ed [facility] INFLUENZA, UNSPECIFIED FORMULATION 2018 88 complet ed [facility] DIVISIO N INFLUENZA, INJECTABLE, QUADRIVALENT, PRESERVATIVE FREE 2017 150 complet ed [facility] TDAP 2017 115 complet ed [facility] INFLUENZA, UNSPECIFIED FORMULATION 2007 88 complet ed [facility] DIVISIO N INFLUENZA, UNSPECIFIED FORMULATION 2006 88 complet ed [facility]IS[facility] N TDAP 2006 115 complet ed Social History Combined list of available smoking, tobacco, and other social history from Department of Defense and Veterans Affairs facilities. 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 History of tobacco use TOBACCO OFFERED [facility]MOKING CLINIC 09/05/2007 [facility] History of tobacco use CURRENT [facility]CO [facility]
--- OUTSIDE RECORDS SUMMARY | 2024-05-08 10:48 | XMS_ITS | Referral Summary ---
Author Organization [facility] Address [address] [place] [address] Care Team Providers Care Campaign Analyst Name Role Phone Unavailable Primary Care Provider Unavailabl e Source Comments [facility],non-owned Affiliates and Associated Physician Practices is amultiple site organization consisting of ambulatory clinics and hospital sitesin [place], [place] and [place]. This disclosure is being madepursuant to the Care Everywhere program and may not contain all information available regarding this patient. Last updated 17.[facility] [employer] Social History Tobacco Use Types Packs/Day Years Used Date Smoking Tobacco: Never Assessed Sex and Gender Information Value Date Recorded Sex Assigned at Not on file Gender Identity Not on file Sexual Orientation Not on file Plan of Treatment Not on file
--- OUTSIDE RECORDS SUMMARY | 2024-05-08 10:48 | XMS_ITS | Continuity of Care Document ---
Author Organization [facility] Address [address] [place] [address] Phone Care Team Providers Care Lathe Machinist Name Role Phone [facility] Unavailable Unavailable Advance Directives Directive Yes / No Effective Date File Name No Information Encounters Encounter Description Practice Location Reason(s) For Visit Diagnoses Date Provider Providers Copied on Encounter [facility], [address], [place], [place], [id number], [place] tel:[phone] [facility] No Information [facility]. [address], [address], [place], [place], [address] , [place]. tel:[phone] Family History Family Member Type Diagnosis Age At Onset No Information Payers Payer name Insurance type Covered constitution party ID Authoriza tion(s) No Information Social [...]
--- OUTSIDE RECORDS SUMMARY | 2024-05-08 10:48 | XMS_ITS | Clinical Summary ---
Author Organization [facility] Address [address] [address] Care Team Providers Care Cell Technician Name Role Phone Julio Caballero MD Unavailable Rudolph Chaves MD Unavailable [phone] Bret Schuler MD Primary Care Provider [phone] Allergies No known active allergies Medications omega 7-bqw-fyu-fish oil 300-1,000 mg capsule daily Active meloxicam [...] Department Care Team Description 02/27/2024 9:30 AM FINANCIAL LEGAL ASSISTANT - 02/27/2024 11:59 PM FINANCIAL LEGAL ASSISTANT Hospital Encounter [facility] [address] [place] [id number] Demetrio Dewitt NP Cervical post-laminectomy syndrome (Primary [...] on file Legal Sex Male 9:48 AM FINANCIAL LEGAL ASSISTANT Gender Identity Not on file Sexual Orientation Not on file Occupation Industry Job Start Date Job End Date retired Not on file Not on file Not on file Obstetrics History Last Filed Vital Signs Vital Sign Reading Time Taken Comments Blood Pressure 127/73 02/27/2024 9:52 AM FINANCIAL LEGAL ASSISTANT Pulse 69 02/27/2024 9:52 AM FINANCIAL LEGAL ASSISTANT Temperature 36.3 ??C (97.3 ??F) 02/27/2024 9:52 AM CS T Respiratory Rate 10 02/27/2024 9:52 AM FINANCIAL LEGAL ASSISTANT Oxygen Saturation 97% 02/27/2024 9:52 AM FINANCIAL LEGAL ASSISTANT Inhaled Oxygen Concentration - - Weight 54.4 [...] Chronic Care Management No change(02/08 9:53 AM FINANCIAL LEGAL ASSISTANT) No Preeti Pena Note: Problem: Chronic Pain [...] on stairs Contact your local community or [facility] for information on exercise, fall prevention programs, or options for improving home safety. Medical Devices Implanted Type Area Apprentice Painter Neckties Device Identifier Shelf Expiration Date Model / Serial / Lot Metal Neck Description:Neck and back fr om surgery Insurance MEDICARE SOLUTIONS [facility] MED[facility] Address: [address] [address] [place] [address] [facility] MEDIC[facility] MED[facility] Address: [address] [address] [place] [address] [employer] MEDICARE SOL[employer]IONS [facility] MEDIC[facility] Address: [address] [address] [place] [address] Advance Directives For more information, please contact: [phone] * Full Code (Latest Code Status on File) Date Activated Date Inactivated Comments 05/20/2019 12:15 PM 05/21/2019 4:39 AM * Full Code Date Activated Date Inactivated Comments 05/01/2019 11:19 AM 05/02/2019 4:34 AM Care Teams Cell Technician Relationship Specialty Start Date End Date Bret Schuler MD [address] [place] [address] DR CHAN [address] [place] [address] PCP - General Family Medicine 05/15/23 Julio Caballero MD [address] [place] [address] Referring Physician Family Medicine 04/03/19 Rudolph Chaves MD [address] [place] [address] Radiation Oncologist Radiation Oncology 04/21/19
--- OUTSIDE RECORDS SUMMARY | 2024-05-08 10:48 | XMS_ITS | Encounter Summary ---
Author Organization [facility] Address [address] [place] [address] Care Team Providers Care Site Technician Name Role Phone Julio Caballero MD Primary Care Provider [phone] Julio Caballero MD Unavailable Rudolph Chaves MD Unavailable [phone] Bret Schuler MD Primary Care Provider [phone] Encounter Details Date Type Department Care Team (Late st Contact Info) Description 09/26/2019 Telephone [facility] [address] [place] [address] Barb Corcoran, RT Social History Tobacco Use Types Packs/Day Years Used Date Smoking Tobacco: Every Day Cigarettes 0.3 50 Smokeless Tobacco: Never Alcohol Use Standard Drinks/Week Comments No 0 (1 standard drink = 0.6 oz pur e alcohol) Sex and Gender Information Value Date Recorded Sex Assigned at Not on file Legal Sex Male 9:48 AM SENIOR DATABASE ENGINEER Gender Identity Not on file Sexual Orientation [...] Chronic Care Management No change(02/08 9:53 AM SENIOR DATABASE ENGINEER) No Preeti Pena Note: Problem: Chronic Pain [...] on stairs Contact your local community or [facility] for information on exercise, fall prevention programs, or options for improving home safety. documented as of this encounter Visit Diagnoses Not on filedocumented in this encounter Care Teams Site Technician Relationship Specialty Start Date End Date Julio Caballero MD [address] [place] [address] PCP - General 06/02/16 05/14/23 Bret Schuler MD [address] [place] [address] [place] [address] PCP - General Family Medicine 05/15/23 Julio Caballero MD [address] [place] [address] Referring Physician Family Medicine 04/03/19 Rudolph Chaves MD [address] [place] [address] Radiation Oncologist Radiation Oncology 04/21/19 documented as of this encounter
--- OUTSIDE RECORDS SUMMARY | 2024-05-08 10:48 | XMS_ITS | Patient Health Summary ---
Author Organization [facility] Address [address] [place] [address] Care Team Providers Care Director Dietetics Department Name Role Phone Unavailable Primary Care Provider Unavailabl e Note from [facility],non-owned Affiliates and Associated Physician Practices is amultiple site organization consisting of ambulatory clinics and hospital sitesin [place], [place], [place] and [place]. This disclosure is being madepursuant to the Care Everywhere program and may not contain all information available regarding this patient. Last updated 17.[facility] Social History Tobacco Use Types Packs/Day Years [...] x 2 x up to .5 cm. ??Pumper Helper sections are submitted in one cassette for decal. THOMPSONz/c Microscopic Exam ? Microscopic examination reveals fragments of fibrocartilage that exhibit fibrillation and scattered hyperplastic chondroid islands. Also noted are fragments of bone and hyaline type cartilage. There is no evidence of nerve bundles, granulomata, inflammation or malignancy. ?? /[facility] Diagnosis ? I. ?Intervertebral disc, cervical region, excision ?A. ?Fibrocartilage and bone (See microscopic description) ?B. ?Clinical history of cervical spondylosis /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 [facility] Pathologist ?Sanjana Avila M.D. Snomed. ?08/01/1999 1041 <1> CPT code ? 74053/51129, [id number]/92238 MISCELLANEOUS SAMPLES / Unknown 07/28/1999 7:55 AM CDT 07/29/1999 7:56 AM CDT Historical Provider LAB - PATHOLOGY/C YTOLOGY ORDERABLES
== END 2024-05-07 17:15 | disposition home or self-care (01) ==
LOC: ANHED 12:20 → ANH2MED 05-06 07:47
PROVIDERS: Emergency Medicine; Nurse Practitioner Gerontology; Admitting Provider Internal Medicine; Emergency Provider Registered Nurse; PCP Family Medicine; Visit Provider Nurse Practitioner Acute Care
DX: J18.9 Pneumonia, unspecified organism (principal); J44.0 Chronic obstructive pulmonary disease with (acute) lower respiratory infection; J43.9 Emphysema, unspecified; Z85.118 Personal history of other malignant neoplasm of bronchus and lung; C71.9 Malignant neoplasm of brain, unspecified; R41.82 Altered mental status, unspecified; I10 Essential (primary) hypertension; E78.2 Mixed hyperlipidemia; I27.20 Pulmonary hypertension, unspecified; F17.210 Nicotine dependence, cigarettes, uncomplicated; E86.0 Dehydration; G89.4 Chronic pain syndrome; E43 Unspecified severe protein-calorie malnutrition; Z68.1 Body mass index [BMI] 19.9 or less, adult; M47.813 Spondylosis without myelopathy or radiculopathy, cervicothoracic region; Z98.1 Arthrodesis status; Z20.822 Contact with and (suspected) exposure to COVID-19; Z79.899 Other long term (current) drug therapy
CPT/HCPCS: 36415; 70450; 71046; 71260; 72125; 74177; 80048; 80053; 80307; 81001; 82550; 83605; 84443; 84484; 85025; 85027; 85610; 85730; 86140; 87040; 87637; 87641; 93005; 93306; 96361; 96365; 96366; 96368; 96372; 96375; 99285; A9270; G0378; J0692; J1650; J7030; Q9967